=== PATIENT | male | born 1950 | race Caucasian/White ===

== ENCOUNTER 2017-10-11 17:01 | Emergency (ER) | payer MEDICARE ==
[2016-05-02 08:31] VITALS: Wt 65.8 kg
[~2017-10-11 17:01] MED LIST: ALBU8.5H IH; ALBU8.5H12 IH; BUPR1PAT9 TD; BUSP7.5T7 PO; CALC625T57 PO; CEFU250S6 PO; CLON-298 PO; CLON-303 *; CLON-388 PO; FLUV50TA18 PO; GAB800PT PO; GABA-549 PO; LEVO-85 PO; LORA-1455 PO; MAG-65 PO; MIRT-22 PO; MULT-1379 PO; OMEP-218 PO; PER PO; PRED-1 PO; PRED20TA6 PO; PREG300C14 PO; TADA5TAB7 PO; TIO18R IH; TRA50 PO; VENL75TA98 PO
[2017-10-11] MEDS ORDERED: ESCI10TA8 PO (17:20)
[2017-10-11] MEDS ORDERED: AMIT-108 PO (17:20)
[2017-10-11] MEDS ORDERED: CLON-388 PO (17:20)
[2017-10-11] MEDS ORDERED: DILT-102 PO (17:20)
[2017-10-11] MEDS ORDERED: NS(*) 0.9% 1000 ML BAG 1,000 ML IV ONE (17:24)
[2017-10-11] MEDS ORDERED: LORazepam 2 MG/ML VIAL IVP ONE (17:25)
--- NOTE | 2017-10-11 17:32 | ER Report ---
History and Physical Time Seen By MD: 17:15 Hx. of Stated Complaint: PATIENT REPORTS THAT HE WOKE UP CONFUSED. HE REPORTS THAT HE RAN OUT OF HIS [employer] YESTERDAY HPI/ROS CHIEF COMPLAINT: Lightheadedness and shakiness HISTORY OF PRESENT ILLNESS: This is a 67-year-old male who presents to the emergency department with his friend for lightheadedness and shakiness. Patient states that this morning he woke up and felt a little lightheaded and felt sort of "out of it and that time was off". Patient also states that he's had an increase in shortness of breath over the last day or two. Patient also states that he's had increase in anxiety this week, feeling a little overwhelmed with things at home he did move out of his house however that was about 7 months ago. Patient states that he became overwhelmed that he has not really unpacked and last 7 months. Patient does have a long-standing history of anxiety and is on chronic benzodiazepines. Patient states the last time he took his clonazepam was about 2 days ago. Patient also states he is feeling a little bit sweaty, chills. Denies chest pain. Denies headaches, denies recent falls. REVIEW OF SYSTEMS: Constitutional: As above. Eyes: No discharge. ENT: No sore throat. Cardiovascular: No chest pain, no palpitations. Respiratory: As above. Gastrointestinal: No abdominal pain, no vomiting. Genitourinary: No hematuria. Musculoskeletal: As above. Skin: No rashes. Neurological: No headache. Allergies: Coded Allergies: blueberry (Verified Allergy, Severe, HIVES, THROAT SELLING, 11/24/16) fentanyl (Verified Allergy, Unknown, DELUSIONS, 11/24/16) Home Meds Active Scripts Albuterol Sul Hfa 90 Mcg 8 Gm (VENTOLIN HFA 90 MCG 8 GM) 8.5 Gm Hfa.aer.ad, 2 PUFF IH Q4-6H Y for shortness of breath, #1 Prov:SAMMI DE JESUS DO 07/03/14 Reported Medications Diltiazem Hcl (CARTIA XT) 120 Mg Cap.er.24h, 120 MG PO QDAY 10/11/17 Escitalopram Oxalate (ESCITALOPRAM OXALATE) 10 Mg Tablet, 10 MG PO QDAY, TAB 10/11/17 Clonazepam (CLONAZEPAM) 0.5 Mg Tab.rapdis, 0.5 MG PO BID, #6 TAB 10/11/17 Amitriptyline Hcl (AMITRIPTYLINE HCL) 50 Mg Tablet, 50 MG PO QHS, #5 TAB 10/11/17 Gabapentin (GABAPENTIN) 300 Mg Capsule, 300 MG PO TID, CAPSULE 11/26/16 Venlafaxine Hcl (VENLAFAXINE HCL ER) 75 Mg Tab.er.24, 225 MG PO QAM TAKE EVERY MORNING 04/09/16 Tramadol Hcl (Ultram) 50 Mg Tab, 100 MG PO TID, 0 Refills TAKE UP TO THREE TIMES A DAY NEEDED FOR PAIN. 05/28/10 Past Medical/Surgical History She has a past medical and surgical history of shortness of breath with activity , COPD, smokes, uses inhaler, uses oxygen usually at night, hepatitis C, hiatal hernia, polyps removed from his throat, hypoglycemia, Raynaud's syndrome with multiple finger amputations, anxiety, depression, appendectomy. Reviewed Nurses Notes: Yes Hx Smoking: Yes Smoking Status: Current: Some Days Smoker Hx Substance Use Disorder: No (DENIES) Hx Alcohol Use: No Constitutional Vital Sign - Last 24 Hours 10/11/17 10/11/17 10/11/17 10/11/17 17:01 17:05 17:08 17:50 Temp 98.4 Pulse ??? 102 Resp 24 B/P (MAP) 154/109 (124) 154/109 138/132 (134) Pulse Ox 84 O2 Delivery Room Air 10/11/17 10/11/17 18:00 18:01 Pulse 93 B/P (MAP) 147/105 (119) Pulse Ox 95 Intake and Output 10/11/17 10/11/17 10/12/17 15:00 23:00 07:00 Intake Total 650 ml Balance 650 ml Physical Exam General Appearance: The patient is alert, has no immediate need for airway protection and no signs of toxicity, appears anxious and fidgety. Eyes: Pupils equal and round no pallor or injection. ENT, Mouth: Mucous membranes are dry, geographic tongue. Respiratory: There are no retractions, lungs are clear to auscultation. Cardiovascular: Regular rate and rhythm, no murmurs, clicks or rubs. Gastrointestinal: Abdomen is soft and non tender, no masses, bowel sounds normal. Neurological: Alert and oriented 4. Moving all extremities. Following all commands. No focal neuro deficits. Cranial nerves II through XII intact. Skin: Warm and dry, no rashes. Musculoskeletal: Neck is supple non tender. Extremities are nontender, nonswollen and have full range of motion. DIFFERENTIAL DIAGNOSIS: After history and physical exam differential diagnosis was considered for [facility], benzodiazepine withdrawal, anxiety, depression and pulmonary embolus. Medical Decision Making Data Points Result Diagram: 10/11/17 1733 10/11/17 1733 Laboratory Hematology Test 10/11/17 17:33 Red Blood Count 6.16 M/uL (4.00-5.60) Mean Corpuscular Volume 91.8 fL (80.0-96.0) Mean Corpuscular Hemoglobin 32.2 pg (26.0-33.0) Mean Corpuscular Hemoglobin Concent 35.1 g/dL (32.0-36.0) Red Cell Distribution Width 13.7 % (11.5-14.5) Mean Platelet Volume 6.8 fL (7.2-11.1) Neutrophils (%) (Auto) 66.9 % (39.4-72.5) Lymphocytes (%) (Auto) 21.3 % (17.6-49.6) Monocytes (%) (Auto) 8.5 % (4.1-12.4) Eosinophils (%) (Auto) 2.6 % (0.4-6.7) Basophils (%) (Auto) 0.7 % (0.3-1.4) Nucleated RBC Relative Count (auto) 0.1 /100WBC Neutrophils # (Auto) 5.4 K/uL (2.0-7.4) Lymphocytes # (Auto) 1.7 K/uL (1.3-3.6) Monocytes # (Auto) 0.7 K/uL (0.3-1.0) Eosinophils # (Auto) 0.2 K/uL (0.0-0.5) Basophils # (Auto) 0.1 K/uL (0.0-0.1) Nucleated RBC Absolute Count (auto) 0.01 K/uL Sodium Level 144 mmol/L (137-145) Potassium Level 4.2 mmol/L (3.5-5.0) Chloride Level 102 mmol/L (98-107) Carbon Dioxide Level 28 mmol/L (22-30) Blood Urea Nitrogen 15 mg/dl (9-21) Creatinine 0.90 mg/dl (0.66-1.25) Glomerular Filtration Rate Calc > 60.0 Random Glucose 97 mg/dl (75-110) Calcium Level 9.2 mg/dl (8.4-10.2) Total Bilirubin 1.1 mg/dl (0.2-1.3) Aspartate Amino Transf (AST/SGOT) 47 U/L (0-35) Alanine Aminotransferase (ALT/SGPT) 66 U/L (0-56) Alkaline Phosphatase 101 U/L (0-126) Troponin I < 0.012 ng/ml Total Protein 8.0 gm/dl (6.3-8.2) Albumin 4.2 g/dl (3.5-5.0) Chemistry Test 10/11/17 17:33 White Blood Count 8.1 k/uL (4.5-11.0) Red Blood Count 6.16 M/uL (4.00-5.60) Hemoglobin 19.8 g/dL (14.0-18.0) Hematocrit 56.5 % (42.0-52.0) Mean Corpuscular Volume 91.8 fL (80.0-96.0) Mean Corpuscular Hemoglobin 32.2 pg (26.0-33.0) Mean Corpuscular Hemoglobin Concent 35.1 g/dL (32.0-36.0) Red Cell Distribution Width 13.7 % (11.5-14.5) Platelet Count 266 K/uL (150-450) Mean Platelet Volume 6.8 fL (7.2-11.1) Neutrophils (%) (Auto) 66.9 % (39.4-72.5) Lymphocytes (%) (Auto) 21.3 % (17.6-49.6) Monocytes (%) (Auto) 8.5 % (4.1-12.4) Eosinophils (%) (Auto) 2.6 % (0.4-6.7) Basophils (%) (Auto) 0.7 % (0.3-1.4) Nucleated RBC Relative Count (auto) 0.1 /100WBC Neutrophils # (Auto) 5.4 K/uL (2.0-7.4) Lymphocytes # (Auto) 1.7 K/uL (1.3-3.6) Monocytes # (Auto) 0.7 K/uL (0.3-1.0) Eosinophils # (Auto) 0.2 K/uL (0.0-0.5) Basophils # (Auto) 0.1 K/uL (0.0-0.1) Nucleated RBC Absolute Count (auto) 0.01 K/uL Glomerular Filtration Rate Calc > 60.0 Calcium Level 9.2 mg/dl (8.4-10.2) Total Bilirubin 1.1 mg/dl (0.2-1.3) Aspartate Amino Transf (AST/SGOT) 47 U/L (0-35) Alanine Aminotransferase (ALT/SGPT) 66 U/L (0-56) Alkaline Phosphatase 101 U/L (0-126) Troponin I < 0.012 ng/ml Total Protein 8.0 gm/dl (6.3-8.2) Albumin 4.2 g/dl (3.5-5.0) EKG/Imaging EKG Interpretation 12 lead EKG: Time of EKG 1729. Rhythm: Normal sinus rhythm, ventricular rate 94 bpm. [place]: normal QRS: normal ST segments: ST depression or elevation identified. [place] [facility] [place] Adarsh Tovar : 1950 Visit/Account:[id number] Date of Sevice: 10/11/2017 2 VIEWS CHEST INDICATION: Respiratory distress. COMPARISON: 07/03/2016. FINDINGS: Cardiomediastinal silhouette and pulmonary vessels within normal limits. There is no focal infiltrate or lobar consolidation. There is no pneumothorax or pleural effusion. No nodule. Chronic interstitial changes which appear stable. Upper abdomen is unremarkable. No acute bony abnormality. IMPRESSION: 1. No acute cardiopulmonary process. Report Dictated By: Naveen Hanna at 10/11/2017 5:55 PM Report E-Signed By: Naveen Hanna at 10/11/2017 5:59 PM WSN:[id number] ED Course/Re-evaluation Clinical Indication for ER IV: Hydration, IV Access ED Course The patient was admitted to room. History and physical were obtained. Differential diagnoses considered. An IV was started. A CBC, CMP were obtained. Hemoglobin and hematocrit 19.8 and 56.5. Otherwise unremarkable. Negative troponin. Patient was given 1 L of normal saline. Patient was given 1 mg IV Ativan. I did reevaluate the patient after the Ativan he states he is feeling much better, and the majority of shakiness subsided. Patient stated that he no longer has shortness of breath. The patient and I did discuss benzodiazepines, potential complications and he cannot abruptly stop them. If this something that he is wanting to stop he needs to discuss this with Dr. Padilla and taper off the medications. Patient did express understanding. I did tell him that his symptoms today are likely from benzodiazepine withdrawal. Patient was in agreement and states this has happened to him before. Patient had no other questions or concerns at this time and was discharged home. Patient was given one 0.5 mg clonazepam for tonight. Patient states he has a prescription that he failed to filler picker tomorrow from Dr. 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 Get plenty of rest. Be sure to get your clonazepam filled tomorrow and take as directed. Follow up with Dr. Padilla as directed. Do not abruptly stop you Clonazepam. Return to the ED for any other concerns or worsening symptoms. Problem Qualifiers FAWAD LOMBARDO [employer] Oct 11, 2017 17:32
[2017-10-11 17:39] LABS: PLATELET COUNT, AUTOMATED 266 K/uL (150-450)
--- NOTE | 2017-10-11 17:50 | EKG ---
[facility]AC[facility] PATIENT NAME: MARY JACQUES : [id number] MR: [id number] V: [id number] EXAM DATE: ORDERING PHYSICIAN: FAWAD LOMBARDO TECHNOLOGIST: CAMRYN Galvan Reason : Blood Pressure : / mmHG Vent. Rate : 094 BPM Atrial Rate : 094 BPM P-R Int : 144 ms QRS Dur : 116 ms QT Int : 400 ms P-R-T Axes : 021 -80 044 degrees QTc Int : 500 ms Normal sinus rhythm Nonspecific intraventricular block Prolonged QT Abnormal ECG When compared with ECG of 24-NOV-2016 18:44, No significant change was found Confirmed by ONEL TYSON ([id number]) on 10/11/2017 6:44:37 PM Referred By: Confirmed By:ONEL TYSON
[2017-10-11 18:00] VITALS: BP 147/105
--- NOTE | 2017-10-11 18:03 | RADIOLOGY IMAGING REPORT ---
FACILITY: [facility] - [place] PATIENT NAME: Adarsh Tovar : 1950 MR: [id number] V: [id number] EXAM DATE: ORDERING PHYSICIAN: FAWAD LOMBARDO TECHNOLOGIST: Location: [facility] Patient: Adarsh Tovar : 1950 Visit/Account:[id number] Date of Sevice: 10/11/2017 2 VIEWS CHEST INDICATION: Respiratory distress. COMPARISON: 07/03/2016. FINDINGS: Cardiomediastinal silhouette and pulmonary vessels within normal limits. There is no focal infiltrate or lobar consolidation. There is no pneumothorax or pleural effusion. No nodule. Chronic interstitial changes which appear stable. Upper abdomen is unremarkable. No acute bony abnormality. IMPRESSION: 1. No acute cardiopulmonary process. Report Dictated By: Naveen Hanna at 10/11/2017 5:55 PM Report E-Signed By: Naveen Hanna at 10/11/2017 5:59 PM WSN:[id number]
[2017-10-11] MEDS ORDERED: clonazePAM 0.5 MG ODT TABDP PO SCH (18:25)
== END 2017-10-11 18:39 | disposition home or self-care (01) ==
LOC: ER 17:15
DX: F19.939 Other psychoactive substance use, unspecified with withdrawal, unspecified (principal); R25.1 Tremor, unspecified
CPT/HCPCS: 71046; 84484; 85025; 93005; 96361; 96374; 99284; J2060; J7030; 82040; 82247; 82310; 82374; 82435; 82565; 82947; 84075; 84132; 84155; 84295; 84450; 84460; 84520

== ENCOUNTER 2017-12-18 23:57 | Emergency (ER) | payer MEDICARE ==
[2016-05-02 08:31] VITALS: Wt 63.5 kg
[~2017-12-18 23:57] MED LIST changes: +AMIT-108 PO; +DILT-102 PO; +ESCI10TA8 PO
--- NOTE | 2017-12-19 00:14 | ER Report ---
History and Physical Time Seen By MD: 00:14 HPI/ROS CHIEF COMPLAINT: S HISTORY OF PRESENT ILLNESS: Patient is somewhat of a poor historian. Additional history obtained from the electronic medical record. Patient presents to the emergency department for evaluation of benzodiazepine dependence. Patient states he has long history of clonazepam use spanning approximately 15 years. He states that this was prescribed initially for anxiety after an injury to his left hand where he lost 4 of his distal digits. Patient states that he is currently out of his clonazepam and wants to get off this medication. The problem he is currently having is now feeling anxious and feeling withdrawal symptoms. He denies any other illicit-type drug use he denies alcohol use. States he is not feeling suicidal or homicidal. Patient apparently is estranged from his he lives by himself in [place]. He has a history of chronic pain for which he is prescribed tramadol. Patient does admit to some chronic standing depression and is on antidepressants for which he states he is on amitriptyline. Patient further admits to some falls over the past couple days and some bruising to the anterior knees secondary to these falls. REVIEW OF SYSTEMS: Constitutional: No fever, no chills. Eyes: No discharge. ENT: No sore throat. Cardiovascular: No chest pain, no palpitations. Respiratory: No cough, no shortness of breath. Gastrointestinal: No abdominal pain, no vomiting. Genitourinary: No hematuria. Musculoskeletal: No back pain. Skin: No rashes. Neurological: No headache. Psych: Denies suicidal or homicidal ideation. Positive for depression positive for benzo withdrawal Allergies: Coded Allergies: blueberry (Verified Allergy, Severe, HIVES, THROAT SELLING, 11/24/16) fentanyl (Verified Allergy, Unknown, DELUSIONS, 11/24/16) Home Meds Active Scripts Albuterol Sul Hfa 90 Mcg 8 Gm (VENTOLIN HFA 90 MCG 8 GM) 8.5 Gm Hfa.aer.ad, 2 PUFF IH Q4-6H Y for shortness of breath, #1 Prov:SAMMI DE JESUS DO 07/03/14 Reported Medications Diltiazem Hcl (CARTIA XT) 120 Mg Cap.er.24h, 120 MG PO QDAY 10/11/17 Escitalopram Oxalate (ESCITALOPRAM OXALATE) 10 Mg Tablet, 10 MG PO QDAY, TAB 4/1/18 Clonazepam (CLONAZEPAM) 0.5 Mg Tab.rapdis, 0.5 MG PO BID, #6 TAB 10/11/17 Amitriptyline Hcl (AMITRIPTYLINE HCL) 50 Mg Tablet, 50 MG PO QHS, #5 TAB 10/11/17 Gabapentin (GABAPENTIN) 300 Mg Capsule, 300 MG PO TID, CAPSULE 11/26/16 Tramadol Hcl (Ultram) 50 Mg Tab, 100 MG PO TID, 0 Refills TAKE UP TO THREE TIMES A DAY NEEDED FOR PAIN. 05/28/10 Discontinued Reported Medications Venlafaxine Hcl (VENLAFAXINE HCL ER) 75 Mg Tab.er.24, 225 MG PO QAM TAKE EVERY MORNING 04/09/16 Past Medical/Surgical History Past medical history for COPD, history of oxygen use at night, history of hepatitis C history of hiatal hernia, history of hypoglycemia, history of Raynaud's, anxiety, depression, appendectomy. Hx Smoking: Yes Smoking Status: Current: Some Days Smoker Hx Substance Use Disorder: No (DENIES) Hx Alcohol Use: No Constitutional Vital Sign - Last 24 Hours 12/19/17 12/19/17 12/19/17 12/19/17 00:09 00:09 00:13 00:27 Temp 98.2 B/P (MAP) 128/79 128/79 (95) Pulse Ox 90 O2 Delivery Room Air O2 Flow Rate 1.0 12/19/17 12/19/17 12/19/17 12/19/17 00:30 00:42 00:57 01:12 Pulse 67 63 63 Resp 7 20 B/P (MAP) 119/83 (95) Pulse Ox 92 92 93 12/19/17 12/19/17 12/19/17 12/19/17 01:27 01:30 01:35 01:40 Pulse 60 63 62 Resp 17 20 23 B/P (MAP) 124/79 (94) Pulse Ox 93 92 93 12/19/17 12/19/17 12/19/17 12/19/17 01:55 02:00 02:10 02:15 Pulse 61 61 60 Resp 8 20 19 B/P (MAP) 96/61 (73) Pulse Ox 90 89 92 12/19/17 12/19/17 02:20 02:27 Pulse 57 B/P (MAP) 110/74 (86) Physical Exam General/Constitutional: Patient is awake, alert, nontoxic and in no acute respiratory distress. Head: Normocephalic and atraumatic. Eyes: Conjunctival clear, Pupils are equal and reactive to light. Extraocular muscles are intact and symmetrical. Sclera are clear and anicteric. Ears:External canals are clear. Tympanic membranes are clear with normal landmarks and light reflex. Nares: No rhinorrhea or bleeding. Turbinates are pink and moist. Oropharyngeal: Mucous membranes are moist. There is no pharyngeal erythema or exudate. There are no palatal petechiae. Uvula is midline and symmetrical. Neck: Supple, no adenopathy. Cardiovascular: Heart is regular rate and rhythm without audible murmurs, rubs or gallops. Pulmonary: Lungs are clear to auscultation bilaterally. There are no wheezes, rales, or rhonchi. Chest rise is symmetrical Abdomen: Soft, nontender, no guarding or peritoneal signs. Extremities: No gross deformities, No peripheral cyanosis. Able to move all 4 extremities. Neuro: Alert and oriented X3, Cranial nerves 2 thru 12 are intact and symmetrical. Skin: No rashes, skin is warm dry and well perfused. Psychiatric: No suicidal or homicidal ideation. Positive for increased psychomotor agitation. Thought process is logical and goal-directed mood is somewhat depressed which is concurrent with affect Medical Decision Making Data Points Result Diagram: 12/19/17 0052 12/19/17 0052 Laboratory Hematology Test 12/19/17 00:52 12/19/17 01:43 Red Blood Count 5.21 M/uL (4.00-5.60) Mean Corpuscular Volume 92.9 fL (80.0-96.0) Mean Corpuscular Hemoglobin 32.3 pg (26.0-33.0) Mean Corpuscular Hemoglobin Concent 34.8 g/dL (32.0-36.0) Red Cell Distribution Width 13.5 % (11.5-14.5) Mean Platelet Volume 7.5 fL (7.2-11.1) Neutrophils (%) (Auto) 66.0 % (39.4-72.5) Lymphocytes (%) (Auto) 20.4 % (17.6-49.6) Monocytes (%) (Auto) 7.4 % (4.1-12.4) Eosinophils (%) (Auto) 4.6 % (0.4-6.7) Basophils (%) (Auto) 1.6 % (0.3-1.4) Nucleated RBC Relative Count (auto) 0.0 /100WBC Neutrophils # (Auto) 6.3 K/uL (2.0-7.4) Lymphocytes # (Auto) 1.9 K/uL (1.3-3.6) Monocytes # (Auto) 0.7 K/uL (0.3-1.0) Eosinophils # (Auto) 0.4 K/uL (0.0-0.5) Basophils # (Auto) 0.2 K/uL (0.0-0.1) Nucleated RBC Absolute Count (auto) 0.00 K/uL Sodium Level 142 mmol/L (137-145) Potassium Level 3.9 mmol/L (3.5-5.0) Chloride Level 102 mmol/L (98-107) Carbon Dioxide Level 26 mmol/L (22-30) Blood Urea Nitrogen 30 mg/dl (9-21) Creatinine 1.20 mg/dl (0.66-1.25) Glomerular Filtration Rate Calc > 60.0 Random Glucose 106 mg/dl (75-110) Calcium Level 8.8 mg/dl (8.4-10.2) Magnesium Level 2.0 mg/dl (1.7-2.2) Total Bilirubin 1.4 mg/dl (0.2-1.3) Aspartate Amino Transf (AST/SGOT) 60 U/L (0-35) Alanine Aminotransferase (ALT/SGPT) 82 U/L (0-56) Alkaline Phosphatase 103 U/L (0-126) Troponin I < 0.012 ng/ml Total Protein 6.8 gm/dl (6.3-8.2) Albumin 3.7 g/dl (3.5-5.0) Salicylates Level < 10 mg/L Salicylate Last Dose Date unk Acetaminophen Level < 10 ug/ml Serum Alcohol < 10 mg/dl Urine Color Jane Urine Clarity Clear Urine pH 5.0 pH (4.8-9.5) Urine Specific [place] 1.025 Urine Protein Negative mg/dL (NEGATIVE) Urine Glucose (UA) Negative mg/dL (NEGATIVE) Urine Ketones Trace mg/dL (NEGATIVE) Urine Blood Negative (NEGATIVE) Urine Nitrite Negative (NEGATIVE) Urine Bilirubin Small (NEGATIVE) Urine Urobilinogen 4.0 mg/dL (0.2-1.9) Urine Leukocyte Esterase Negative (NEGATIVE) Urine RBC 1 /HPF (0-2/HPF) Urine WBC 1 /HPF (0-5/HPF) Urine Squamous Epithelial Cells Few /LPF (</=FEW) Urine Bacteria Few /HPF (NONE-FEW) Urine Hyaline Casts Few /LPF (NONE-FEW) Urine Mucus Few /HPF (NONE-FEW) Urine Opiates Screen Negative Urine Barbiturates Screen Negative Ur Tricyclic Antidepressants Screen Positive Urine Phencyclidine Screen Negative Urine Amphetamines Screen Positive Urine Benzodiazepines Screen Negative Urine Cocaine Screen Negative Urine Cannabinoids Screen Negative Chemistry Test 12/19/17 00:52 12/19/17 01:43 White Blood Count 9.5 k/uL (4.5-11.0) Red Blood Count 5.21 M/uL (4.00-5.60) Hemoglobin 16.8 g/dL (14.0-18.0) Hematocrit 48.4 % (42.0-52.0) Mean Corpuscular Volume 92.9 fL (80.0-96.0) Mean Corpuscular Hemoglobin 32.3 pg (26.0-33.0) Mean Corpuscular Hemoglobin Concent 34.8 g/dL (32.0-36.0) Red Cell Distribution Width 13.5 % (11.5-14.5) Platelet Count 239 K/uL (150-450) Mean Platelet Volume 7.5 fL (7.2-11.1) Neutrophils (%) (Auto) 66.0 % (39.4-72.5) Lymphocytes (%) (Auto) 20.4 % (17.6-49.6) Monocytes (%) (Auto) 7.4 % (4.1-12.4) Eosinophils (%) (Auto) 4.6 % (0.4-6.7) Basophils (%) (Auto) 1.6 % (0.3-1.4) Nucleated RBC Relative Count (auto) 0.0 /100WBC Neutrophils # (Auto) 6.3 K/uL (2.0-7.4) Lymphocytes # (Auto) 1.9 K/uL (1.3-3.6) Monocytes # (Auto) 0.7 K/uL (0.3-1.0) Eosinophils # (Auto) 0.4 K/uL (0.0-0.5) Basophils # (Auto) 0.2 K/uL (0.0-0.1) Nucleated RBC Absolute Count (auto) 0.00 K/uL Glomerular Filtration Rate Calc > 60.0 Calcium Level 8.8 mg/dl (8.4-10.2) Magnesium Level 2.0 mg/dl (1.7-2.2) Total Bilirubin 1.4 mg/dl (0.2-1.3) Aspartate Amino Transf (AST/SGOT) 60 U/L (0-35) Alanine Aminotransferase (ALT/SGPT) 82 U/L (0-56) Alkaline Phosphatase 103 U/L (0-126) Troponin I < 0.012 ng/ml Total Protein 6.8 gm/dl (6.3-8.2) Albumin 3.7 g/dl (3.5-5.0) Salicylates Level < 10 mg/L Salicylate Last Dose Date unk Acetaminophen Level < 10 ug/ml Serum Alcohol < 10 mg/dl Urine Color Jane Urine Clarity Clear Urine pH 5.0 pH (4.8-9.5) Urine Specific [place] 1.025 Urine Protein Negative mg/dL (NEGATIVE) Urine Glucose (UA) Negative mg/dL (NEGATIVE) Urine Ketones Trace mg/dL (NEGATIVE) Urine Blood Negative (NEGATIVE) Urine Nitrite Negative (NEGATIVE) Urine Bilirubin Small (NEGATIVE) Urine Urobilinogen 4.0 mg/dL (0.2-1.9) Urine Leukocyte Esterase Negative (NEGATIVE) Urine RBC 1 /HPF (0-2/HPF) Urine WBC 1 /HPF (0-5/HPF) Urine Squamous Epithelial Cells Few /LPF (</=FEW) Urine Bacteria Few /HPF (NONE-FEW) Urine Hyaline Casts Few /LPF (NONE-FEW) Urine Mucus Few /HPF (NONE-FEW) Urine Opiates Screen Negative Urine Barbiturates Screen Negative Ur Tricyclic Antidepressants Screen Positive Urine Phencyclidine Screen Negative Urine Amphetamines Screen Positive Urine Benzodiazepines Screen Negative Urine Cocaine Screen Negative Urine Cannabinoids Screen Negative Toxicology Test 12/19/17 00:52 12/19/17 01:43 Salicylates Level < 10 mg/L Salicylate Last Dose Date unk Acetaminophen Level < 10 ug/ml Serum Alcohol < 10 mg/dl Urine Opiates Screen Negative Urine Barbiturates Screen Negative Ur Tricyclic Antidepressants Screen Positive Urine Phencyclidine Screen Negative Urine Amphetamines Screen Positive Urine Benzodiazepines Screen Negative Urine Cocaine Screen Negative Urine Cannabinoids Screen Negative Urinalysis Test 12/19/17 01:43 Urine Color Jane Urine Clarity Clear Urine pH 5.0 pH (4.8-9.5) Urine Specific [place] 1.025 Urine Protein Negative mg/dL (NEGATIVE) Urine Glucose (UA) Negative mg/dL (NEGATIVE) Urine Ketones Trace mg/dL (NEGATIVE) Urine Blood Negative (NEGATIVE) Urine Nitrite Negative (NEGATIVE) Urine Bilirubin Small (NEGATIVE) Urine Urobilinogen 4.0 mg/dL (0.2-1.9) Urine Leukocyte Esterase Negative (NEGATIVE) Urine RBC 1 /HPF (0-2/HPF) Urine WBC 1 /HPF (0-5/HPF) Urine Squamous Epithelial Cells Few /LPF (</=FEW) Urine Bacteria Few /HPF (NONE-FEW) Urine Hyaline Casts Few /LPF (NONE-FEW) Urine Mucus Few /HPF (NONE-FEW) EKG/Imaging EKG Interpretation FACILITY: [facility] PATIENT NAME: Olaf Dos Santos : 03/23/1952 MR: [id number] V: [id number] EXAM DATE: ORDERING PHYSICIAN: KIRSTY DAVIDSON TECHNOLOGIST: Location: [facility] Patient: Olaf Dos Santos : 03/23/1952 Visit/Account:[id number] Date of Sevice: 12/18/2017 HUMERUS RIGHT HISTORY: Trauma. Hit head. Has fallen many times. Intoxicated. COMPARISON: None. Prior chest x-ray 01/14/2017 and 05/06/2015. TECHNIQUE: AP and lateral views of the right humerus. FINDINGS: There is no fracture or dislocation. There is mild degenerative change of the glenohumeral joint. There is lucency of the glenoid and scapula, unchanged compared to prior chest x-ray, that may be on a degenerative basis. No acromioclavicular joint separation. There is soft tissue calcification superior to the right humeral head, consistent with calcific tendinopathy. Visible right thorax is normal. IMPRESSION: 1. Degenerative changes, but no acute osseous abnormality of the right humerus. Report Dictated By: Giovanna Arreguin at 12/18/2017 10:28 PM Report E-Signed By: Giovanna Arreguin at 12/18/2017 10:30 PM WSN:[id number] Imaging FACILITY: [facility] PATIENT NAME: Adarsh Tovar : 1950 MR: [id number] V: [id number] EXAM DATE: ORDERING PHYSICIAN: KIRSTY DAVIDSON TECHNOLOGIST: Location: [facility] Patient: Adarsh Tovar : 1950 Visit/Account:[id number] Date of Sevice: 12/19/2017 EXAMINATION: CT Head Without Contrast 12/19/2017 12:33 AM HISTORY: falls TECHNIQUE: Contiguous axial images were obtained from the skull base to the vertex without intravenous contrast. One of the following dose optimization techniques was utilized in the performance of this exam: Automated exposure control; adjustment of the mA and/ or kV according to the patient's size; or use of an iterative reconstruction technique. Specific details can be referenced in the facility's radiology CT exam operational policy. COMPARISON STUDIES: 11/24/2016 with MR 12/25/2016. FINDINGS: Ventricles / sulci / fissures: Normal for age Masses / hemorrhage / midline shift: negative White matter: Mild white matter hypodensities which are age appropriate. No acute finding. Johnston-white differentiation: negative Extra-axial spaces: negative Dural venous sinuses / arterial structures: negative Skull base / calvarium: negative Visualized mastoid air cells / paranasal sinuses: Leftward nasal septal deviation. IMPRESSION: Unremarkable head CT for age. No evidence of mass, acute ischemia, or hemorrhage. Report Dictated By: Martín Chu MD at 12/19/2017 1:23 AM Report E-Signed By: Martín Chu MD at 12/19/2017 1:25 AM WSN:[id number] ED Course/Re-evaluation ED Course 12/19/2017 12:52:39 am patient appears to be here requesting help with detox from benzodiazepines. Patient's currently in mild withdrawal based on physical exam findings. Plan will be medical screening evaluation. If medically cleared will contact [facility] and discussed the case with them. Decision to Disposition Date: Dec 19, 2017 Decision to Disposition Time: 02:10 Depart Departure Latest Vital Signs Vital Signs Date Time Temp Pulse Resp B/P (MAP) Pulse Ox O2 Delivery O2 Flow Rate FiO2 12/19/17 02:27 57 12/19/17 02:20 110/74 (86) 12/19/17 02:15 19 92 12/19/17 00:09 1.0 12/19/17 00:09 98.2 Room Air Impression: Primary Impression: Benzodiazepine withdrawal without complication Condition: Condition Unchanged Disposition: XFER TO [facility] (To Dr Donnelly) Referrals: NETTE HAND MD (PCP) KIRSTY DAVIDSON MD Dec 19, 2017 00:14
[2017-12-19] MEDS ORDERED: DIAZEPAM 10 MG TAB PO ONE (00:35)
[2017-12-19 01:03] LABS: PLATELET COUNT, AUTOMATED 239 K/uL (150-450)
--- NOTE | 2017-12-19 01:31 | RADIOLOGY IMAGING REPORT ---
FACILITY: [facility] PATIENT NAME: Adarsh Tovar : 1950 MR: [id number] V: [id number] EXAM DATE: ORDERING PHYSICIAN: KIRSTY DAVIDSON TECHNOLOGIST: Location: [facility] Patient: Adarsh Tovar : 1950 Visit/Account:[id number] Date of Sevice: 12/19/2017 EXAMINATION: CT Head Without Contrast 12/19/2017 12:33 AM HISTORY: falls TECHNIQUE: Contiguous axial images were obtained from the skull base to the vertex without intraven ous contrast. One of the following dose optimization techniques was utilized in the performance of this exam: Autom ated exposure control; adjustment of the mA and/or kV according to the patient's size; or use of an i terative reconstruction technique. Specific details can be referenced in the facility's radiology C T exam operational policy. COMPARISON STUDIES: 11/24/2016 with MR 12/25/2016. FINDINGS: Ventricles / sulci / fissures: Normal for age Masses / hemorrhage / midline shift: negative White matter: Mild white matter hypodensities which are age appropriate. No acute finding. Johnston-white differentiation: negative Extra-axial spaces: negative Dural venous sinuses / arterial structures: negative Skull base / calvarium: negative Visualized mastoid air cells / paranasal sinuses: Leftward nasal septal deviation. IMPRESSION: Unremarkable head CT for age. No evidence of mass, acute ischemia, or hemorrhage. Report Dictated By: Martín Chu MD at 12/19/2017 1:23 AM Report E-Signed By: Martín Chu MD at 12/19/2017 1:25 AM WSN:[id number]
[2017-12-19 02:20] VITALS: BP 110/74
--- NOTE | 2017-12-19 02:50 | EKG ---
FACILITY: [facility] PATIENT NAME: MARY JACQUES : [id number] MR: [id number] V: [id number] EXAM DATE: ORDERING PHYSICIAN: KIRSTY DAVIDSON TECHNOLOGIST: DM Test Reason : HX AMITRYPTILINE USE Blood Pressure : / mmHG Vent. Rate : 065 BPM Atrial Rate : 065 BPM P-R Int : 170 ms QRS Dur : 136 ms QT Int : 458 ms P-R-T Axes : 063 -78 019 degrees QTc Int : 476 ms Normal sinus rhythm Nonspecific intraventricular block Abnormal ECG When compared with ECG of 11-OCT-2017 17:29, QRS duration has increased Confirmed by NETTE MYERS ([id number]) on 12/19/2017 6:27:05 AM Referred By: Confirmed By:NETTE MYERS
== END 2017-12-19 02:30 ==
LOC: ER 12-19 00:17
DX: F19.239 Other psychoactive substance dependence with withdrawal, unspecified (principal); I45.4 Nonspecific intraventricular block; F41.9 Anxiety disorder, unspecified
CPT/HCPCS: 36415; 70450; 80305; 81001; 83735; 84443; 84484; 85025; 93005; 99284; A9270; G0480; 80320; 80329; 82040; 82247; 82310; 82374; 82435; 82565; 82947; 84075; 84132; 84155; 84295; 84450; 84460; 84520

== ENCOUNTER 2017-12-19 02:19 | Inpatient (IN) | payer MEDICARE ==
[2016-05-02 08:31] VITALS: BMI 22.7
[2017-12-19] MEDS ORDERED: DIAZEPAM 10 MG TAB PO PRN (02:55)
[2017-12-19] MEDS ORDERED: MAG HYD/AL HYD/SIMETH 30ML UDC PO PRN (02:55)
[2017-12-19 03:00] VITALS: BP 118/74
[2017-12-19] MEDS ORDERED: traMADol 50 MG TAB PO ONE (03:00)
[2017-12-19] MEDS: MULTIVITAMINS TAB PO SCH (07:48)
[2017-12-19 07:49] VITALS: BP 123/76
[2017-12-19 12:12] VITALS: BP 112/73
[2017-12-19] MEDS: DILTIAZEM CD 120 MG CAPCR PO SCH (12:16)
[2017-12-19] MEDS: ESCITALOPRAM OXALATE 10 MG TAB PO SCH (12:17)
[2017-12-19] MEDS: GABAPENTIN 300 MG CAP PO SCH ×2 (13:39→21:09)
[2017-12-19] MEDS: LIDOCAINE 2% VISC SLN 15ML UDC PO PRN (14:27)
--- NOTE | 2017-12-19 14:58 | HISTORY AND PHYSICAL ---
DATE OF ADMISSION: December 19, 2017 PRESENTING PROBLEM/CHIEF COMPLAINT "I was very unsteady and falling a lot. I was on medication for a long time, 15 years, and I wasn't supposed to be. It got to the point where I was unsteady when I used it and when I didn't." HISTORY OF PRESENT ILLNESS This patient is a 67-year-old male that presented to the emergency department for evaluation of benzodiazepine dependence. He reported a 15-year history of using clonazepam, which was initially prescribed following an injury to his left hand where he lost four digits secondary to frostbite and Raynaud D3. Patient is currently out of this medication, clonazepam, and wants to be off of it. He reports increased anxiety and feeling withdrawal symptoms at the time of emergency room visit. He denied any use of any illicit drugs or alcohol use. He denied suicidal or homicidal ideation. He also has a chronic pain syndrome for which he s prescribed tramadol, and reports some chronic long- standing history of depression for which he takes amitriptyline. He most recently has had some falls over the last couple of days, with bruising to his anterior knees secondary to these falls. He was agreeable to a voluntary admission for further evaluation and treatment, and was transferred to the Behavioral Health Unit. MENTAL HEALTH HISTORY Patient has had one previous inpatient psychiatric hospitalization at [facility] in April of 2016, at which time he presented with an altered mental status and psychotic symptoms. He also reports a previous inpatient residential stay at [facility] in [place], [place] in 1983 for substance related issues to keep his employment. He denies history of suicide attempts. He recently has been engaged with medication management with Kalina Kenny, psychiatric nurse practitioner, and has started therapy with Eusebia Corley. He in the past was seen by Mercedes Lorenzana for medication management. Previous medications including Effexor, Adderall, BuSpar , Remeron, Lyrica. FAMILY PSYCHIATRIC HISTORY He reports he has a sister with an eating disorder and depression. 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 History of Raynaud syndrome and COPD. SOCIAL HISTORY Patient was born in [facility]. His father was in the [employer]. He came to the [place] at 3 years of age. His parents were at the time of his . They are both . He has one brother and one sister. He has been and times two. He has one daughter living in [place], [place]. He reports that he lives by himself. He is currently not working. He retired in March 2005 or 2005. He graduated high school from [employer] in [place]. He reports previously living in [facility] from age 12 to 17 years of age. 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 LEGAL HISTORY Denies history of being on probation, parole, denies history of felonies or DUIs. OFFENDER/VICTIM ISSUES Denies history of physical, emotional, sexual abuse. SUBSTANCE ABUSE HISTORY Patient is guarded with this information. Reports he was a "child of the 60s." He reports no "hard use of drugs since 1982." He is a previous smoker, smoking from age to 18 up until five years ago. He denies regular use of cannabis. He reports drinking heavily in college. He reports that he used drugs for a long time, although is not willing to disclose what type. Patient does report a previous history of methamphetamine, which he used sporadically, but again is very nonspecific about his drug use. PHYSICAL EXAMINATION GENERAL: Please see emergency room notes for physical exam. VITAL SIGNS: At the time of admission, including temperature of 98.5, pulse 78 , respiratory rate 18, blood pressure 118/74, pulse oximetry 93% on room air. LABORATORY DATA CBC within normal limits. Chemistry panel within normal limits with the exception of AST/ALT slightly elevated at 60 and 82, total bilirubin is elevated at 1.4, BUN elevated 30, thyroid stimulating hormone is pending. Urine screen with high amount of urobilinogen 4.0. Toxicology including salicylate, acetaminophen, serum alcohol levels less than 10. Urine screen negative for opiates, barbiturates, phencyclidine, benzodiazepine, cocaine and cannabinoids. Positive for tricyclics of which he is prescribed, positive for amphetamines of which he denies being prescribed or using. MENTAL STATUS EXAMINATION GENERAL APPEARANCE, BEHAVIOR AND ATTITUDE: Patient is slightly anxious, although very cooperative and polite during his initial interview. No periods of tearfulness. No bizarre mannerisms or tics. No psychomotor agitation or retardation. MOOD: Mostly euthymic. AFFECT: Minimally constricted, mood congruent. THOUGHT PROCESSES: Logical, goal directed. No loose associations or flight of ideas. THOUGHT CONTENT: Free of auditory or visual hallucinations, ideas of reference , thought broadcastings, delusions, obsessions, compulsions. Patient denying suicidal or homicidal ideation. SENSORIUM: Clear. COGNITION: Alert and oriented to person, place, time and situation. MEMORY: Immediate, recent and remote estimated intact. INTELLIGENCE: Average based on interview. INSIGHT AND JUDGMENT: Considered intact, as patient presented on a voluntary basis for benzodiazepine withdrawal and treatment. ASSESSMENT This is a 67-year-old male that presented on a voluntary basis to the emergency department requesting assistance with benzodiazepine dependence. He reported a 15 year use of clonazepam, wanting to get off of this medication, but had recently run out of the prescription. Patient also with history of Raynaud syndrome and is on pain medication, tramadol, as well as currently seeing an outpatient psychiatric provider, being prescribed Lexapro and amitriptyline for his mental health symptoms. He reports the amitriptyline is effective for his sleep. Unsure of the effectiveness of Lexapro. Patient has also reported some recent falling and he attributes this to the benzodiazepine use. He denies use of illicit substances, although is positive for amphetamines. He is currently not being prescribed these and denies off-street use, although previous history of significant drug use, reporting he is a child of the 60s, very vague about his substance abuse history. Patient is rating his depression a 5-6, anxiety a 7-8. He denies anger. Reports his sleep is mostly sufficient, sleeps six to eight hours. Energy is fair. Appetite comes and goes. Does report some weight loss over the years. Patient denies symptoms of little or psychosis. He denies suicidal or homicidal ideation. He is agreeable to ongoing treatment and evaluation, and remains as a voluntary patient on the Behavioral Health Unit. 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 Stimulant use disorder, current remission. Unspecified anxiety disorder. History of Raynaud syndrome Problems related to ineffective coping mechanisms, intermediate use of benzodiazepines. PLAN 1. Will admit to the unit. 2. Necessary precautions will be implemented. 3. Individual and group therapy will be initiated. 4. Medications to be administered and titrated accordingly. 5. Labs, further imaging as appropriate. 6. Estimated length of stay three to five days. 7. Ongoing management of discharge planning in order to appropriately bridge over to outpatient services at the time of discharge. CHARLA
[2017-12-19 15:19] VITALS: BP 111/75
[2017-12-19 21:00] VITALS: BP 107/68
[2017-12-19] MEDS: AMITRIPTYLINE HCL 25 MG TAB PO SCH (21:09)
[2017-12-20 06:05] VITALS: BP 130/66
[2017-12-20] MEDS: ESCITALOPRAM OXALATE 10 MG TAB PO SCH (07:25)
[2017-12-20] MEDS: LIDOCAINE 2% VISC SLN 15ML UDC PO PRN (07:25)
[2017-12-20] MEDS: DILTIAZEM CD 120 MG CAPCR PO SCH (07:25)
[2017-12-20] MEDS: GABAPENTIN 300 MG CAP PO SCH ×3 (07:25→20:44)
[2017-12-20] MEDS: MULTIVITAMINS TAB PO SCH (07:25)
[2017-12-20 10:30] VITALS: BP 110/70
--- NOTE | 2017-12-20 11:42 | BHS Progress Note ---
BHS - Subjective Progress Notes Subjective "I'm doing ok. I'm a little anxious about not taking the Clonazepam. I think I depended on it. I've always been an anxious little fucker. When the anxiety comes back I tend to isolate." Depression'/anxiety 5/10 Reports fear in past regarding running low on prescription of benzodiazepines Sleeping well, appetite sufficient Suicidal Ideation: None Homicidal Ideation: None S - Objective Physical Exam Vital Signs Laboratory Tests 12/19/17 06:33 Laboratory Tests 12/19/17 06:33: Sodium Level 142, Potassium Level 3.5, Chloride Level 101, Carbon Dioxide Level 29, Blood Urea Nitrogen 24, Creatinine 1.10, Glomerular Filtration Rate Calc > 60.0, Random Glucose 81, Calcium Level 8.5, Total Bilirubin 1.3, Aspartate Amino Transf (AST/SGOT) 61, Alanine Aminotransferase (ALT/SGPT) 83, Alkaline Phosphatase 94, Total Protein 6.2, Albumin 3.3 ED Medications Multivitamins (Thera-M Enhanced Tab (Or Equiv)) 1 each QDAY Last administered on 12/20/17at 07:25; Admin Dose 1 EACH; Start 12/19/17 at 09:00; Stop 01/18/18 at 08:59 Diazepam (Valium(*) 10 Mg Tab (Or Equiv)) 10 mg PRN PRN Last administered on 12/19/17at 21:08; Admin Dose 10 MG; Start 12/19/17 at 02:55; Stop 01/02/18 at 02:54 Gabapentin (Neurontin(*) 300 Mg Cap (Or Equiv)) 600 mg TID Last administered on 12/20/17at 07:25; Admin Dose 600 MG; Start 12/19/17 at 14:00; Stop 01/18/18 at 13: 59 Diltiazem HCl (Cardizem Cd 120 Mg Capcr (Or Equiv)) 120 mg QDAY Last administered on 12/20/17at 07:25; Admin Dose 120 MG; Start 12/19/17 at 11:50; Stop 01/18/18 at 11:49 Lidocaine HCl (Lidocaine 2% Visc Sln (*) 15ml Udc) 15 ml PRN PRN Last administered on 12/20/17at 07:25; Admin Dose 15 ML; Start 12/19/17 at 11:50; Stop 01/18/18 at 11:49 Amitriptyline HCl (Elavil 25 Mg Tab (Or Equiv)) 100 mg QHS Last administered on 12/19/17at 21:09; Admin Dose 100 MG; Start 12/19/17 at 21:00; Stop 01/18/18 at 20:59 Escitalopram Oxalate (Lexapro 10 Mg Tab (Or Equiv)) 10 mg QDAY Last administered on 12/20/17at 07:25; Admin Dose 10 MG; Start 12/19/17 at 11:50; Stop 01/18/18 at 11:49 Muscle Strength and Tone: WNL Gait and Station: Steady [facility] Medications Reviewed: Side Effects, Benefits of Medication, Risks Allergies Reviewed: Yes Mental Status Exam General Appearance: Casual, Well Groomed, Good Eye Contact, Cooperative, Polite , Good Interaction Speech: Clear, Spontaneous, Normal Rate, Normal Rhythm, Normal Volume, Normal Tone Mood: Dysthmic/Depressed Affect: Full and Appropriate, Calm, No Sad, No Neutral, Anxious Thought Process: Organized, Logical, Goal Directed, No Loose Associations, No Flight of Ideas Thought Content: No Suicidal Ideation, No Homicidal Ideation, No Delusions, No Auditory Halllucinations, No Visual Hallucinations, No Thought Broadcasting, No Ideas of Reference, No Obsessions, No Compulsions Cognition: Alert & Oriented-Person, Alert & Oriented-Place, Alert & Oriented- Time, Nvymu-[id number]-Izhjvdqjv Memory: Immediate, Recent, Remote Intelligence: Average Insight Judgment: Intact, Appropriate, Poor Result Diagram: 12/19/17 0633 Lab Allergies Coded Allergies blueberry (Verified Allergy, Severe, HIVES, THROAT SELLING, 11/24/16) fentanyl (Verified Allergy, Unknown, DELUSIONS, 11/24/16) Microbiology ED Medications Multivitamins (Thera-M Enhanced Tab (Or Equiv)) 1 each QDAY Last administered on 12/20/17at 07:25; Admin Dose 1 EACH; Start 12/19/17 at 09:00; Stop 01/18/18 at 08:59 Diazepam (Valium(*) 10 Mg Tab (Or Equiv)) 10 mg PRN PRN Last administered on 12/19/17at 21:08; Admin Dose 10 MG; Start 12/19/17 at 02:55; Stop 01/02/18 at 02:54 Gabapentin (Neurontin(*) 300 Mg Cap (Or Equiv)) 600 mg TID Last administered on 12/20/17at 07:25; Admin Dose 600 MG; Start 12/19/17 at 14:00; Stop 01/18/18 at 13: 59 Diltiazem HCl (Cardizem Cd 120 Mg Capcr (Or Equiv)) 120 mg QDAY Last administered on 12/20/17at 07:25; Admin Dose 120 MG; Start 12/19/17 at 11:50; Stop 01/18/18 at 11:49 Lidocaine HCl (Lidocaine 2% Visc Sln (*) 15ml Udc) 15 ml PRN PRN Last administered on 12/20/17at 07:25; Admin Dose 15 ML; Start 12/19/17 at 11:50; Stop 01/18/18 at 11:49 Amitriptyline HCl (Elavil 25 Mg Tab (Or Equiv)) 100 mg QHS Last administered on 12/19/17at 21:09; Admin Dose 100 MG; Start 12/19/17 at 21:00; Stop 01/18/18 at 20:59 Escitalopram Oxalate (Lexapro 10 Mg Tab (Or Equiv)) 10 mg QDAY Last administered on 12/20/17at 07:25; Admin Dose 10 MG; Start 12/19/17 at 11:50; Stop 01/18/18 at 11:49 [facility] Assessment and Plan [id number] Encounter Date: Dec 20, 2017 Osty-st-Olxm Encounter Time: 11:39 [facility] Plan: Admit to Unit, Necessary Precautions, Individual/Group Therapy, Admin /Titrate Meds, Educate Patient Tobacco Medications: Started Multpiple Antipsychotics Used: No Problems: (1) Sedative hypnotic or anxiolytic dependence Status: Chronic (2) ANXIETY DISORDER, UNSPECIFIED Status: Chronic (3) Frostbite of hands, bilateral Status: Chronic (4) Raynauds syndrome Status: Chronic (5) COPD (chronic obstructive pulmonary disease) Status: Chronic (6) Benzodiazepine withdrawal without complication Status: Acute Condition Continue current medication and treatment [facility] protocol for benzodiazepine withdrawal Lengthy discussion regarding loin puller use of benzodiazepines, patient misunderstood he would be discharging on Valium States knows street people if he has to resort to that for help Irritable as discussed not intending to discharge on Diazepam GENIE DALY NP Dec 20, 2017 11:42
[2017-12-20 14:12] VITALS: BP 119/81
[2017-12-20] MEDS ORDERED: TOPIRAMATE 25 MG TAB PO ONE (14:15)
[2017-12-20] MEDS: hydrOXYzine PAMOATE 25 MG CAP PO PRN ×2 (16:43→22:16)
[2017-12-20 20:11] VITALS: BP 139/106
[2017-12-20 20:34] VITALS: BP 110/75
[2017-12-20] MEDS: AMITRIPTYLINE HCL 25 MG TAB PO SCH (20:44)
[2017-12-20] MEDS ORDERED: GABAPENTIN 300 MG CAP PO ONE (22:05)
[2017-12-21 06:02] VITALS: BP 134/83
[2017-12-21] MEDS: ESCITALOPRAM OXALATE 10 MG TAB PO SCH (08:30)
[2017-12-21] MEDS: DILTIAZEM CD 120 MG CAPCR PO SCH (08:30)
[2017-12-21] MEDS: GABAPENTIN 300 MG CAP PO SCH ×2 (08:30→13:57)
[2017-12-21] MEDS: MULTIVITAMINS TAB PO SCH (08:30)
[2017-12-21] MEDS ORDERED: TOPIRAMATE 25 MG TAB PO ONE (10:45)
[2017-12-21 11:02] VITALS: BP 116/87
[2017-12-21] MEDS ORDERED: TOPI-120 PO (13:11)
[2017-12-21] MEDS ORDERED: HYDR25CA83 PO (13:12)
[2017-12-21] MEDS ORDERED: MULT-859 PO (13:12)
--- NOTE | 2017-12-22 17:00 | DISCHARGE SUMMARY ---
Patient was seen at approximately 1100 hours on the morning of December 21, 2017 for note concerning this dictation. FINAL DIAGNOSES PER DSM-V Hypnotic use disorder, benzodiazepines, moderate to severe. Anxiety disorder unspecified. REASON FOR ADMISSION This is a well known 67-year-old male who was in the remote past initially started on benzodiazepines, particularly Klonopin, secondary to an injury of distal digits. Patient remained on benzodiazepines for many years. Patient has been struggling over the last few years to get off all benzodiazepines. Patient has been following up with outpatient providers that have prescribed limited quantities of Klonopin to this patient. Patient was noted to have called the unit, stating he had once again used his benzodiazepines to excess and had run out. Patient had been to urgent care to try to get more as well. Patient requesting voluntary admission for detox off benzodiazepines. Patient was admitted without incident, very calm, cooperative and polite throughout his stay. Benzodiazepine withdrawal was completed with the use of diazepam. Any further benzodiazepine withdrawal in this patient is likely to be psychogenic in nature. Patient has had full workup. Patient notably had imaging which was overall unremarkable as well at the time of admission. Patient responded to Topamax along with other anxiolytic medications patient was prescribed as an outpatient. Patient has a history of headaches as well. Patient not displaying any parasuicidal behaviors. Patient's appetite was good on the unit. Patient also sleeping well and patient discharged to home to continue follow-up care as an outpatient. PHYSICAL EXAMINATION GENERAL: Please see emergency room note. Notable for a 67-year-old male of thin body habitus. VITAL SIGNS: At the time of admission, temperature 98.2, pulse 63, blood pressure 128/79 and oxygen saturations were 90 on room air. At the time of discharge from [facility] vital signs showed a temperature of 98.5, pulse 75, respiratory rate 16, blood pressure 160/87, and pulse oximetry 87 on room air. LABORATORY DATA: Chemistry panel on December 19, 2017 notable for BUN elevated at 24 with an AST and an ALT elevated at 61 and 83 respectively. CBC was unremarkable at the time of admission. Total bilirubin noted to be elevated at 1.4 at the time of admission. Troponins were nondetectable. TSH 2.46. Urobilinogen was present in the urine. Toxicology screen positive for tricyclics which patient is prescribed. Negative for benzodiazepines. It is notable that Klonopin oftentimes does not show up on the urine toxicology, and it was also notable that the patient was positive for amphetamines at the time of admission, and confirmatory amphetamine screen is pending at the time of this incision. MENTAL STATUS EXAMINATION AT THE TIME OF DISCHARGE GENERAL APPEARANCE, BEHAVIOR AND ATTITUDE: This is a polite, cooperative 67- year-old male. No psychomotor agitation or retardation. No bizarre mannerisms or tics. Patient nontearful, making good eye contact, indicating an understanding of the need to avoid all benzodiazepines of any kind in the future , and work with outpatient providers to find successful ways to combat any ongoing underlying anxiety. SPEECH: Within normal limits, regular rate, rhythm, volume and tone. MOOD: Described as good. AFFECT: Full and bright. Mood congruent. THOUGHT PROCESSES: Goal directed, logical. No loose associations or flight of ideas. THOUGHT CONTENT: Free of auditory or visual hallucinations, ideas of reference , thought broadcastings, delusions, obsessions, compulsions. Patient adamantly denying suicidal or homicidal ideation. SENSORIUM: Clear. COGNITION: Alert and oriented to person, place, time and situation. MEMORY: Immediate, recent and remote estimated intact. INTELLIGENCE: Average based on interview and previous knowledge of this patient. INSIGHT AND JUDGMENT: Considered grossly intact in the absence of benzodiazepine use either prescribed or illicit. and avoidance of other substances. RESULTS OF TESTING IMAGING: Head CT was done on December 19, 2017 secondary to falls, was overall unremarkable. Please see electronic report for full data. LABORATORY DATA: See above. CONSULTATIONS: None. TREATMENT Patient received medications, participated in individual and group therapy. HOSPITAL COURSE Patient remained calm, pleasant and polite throughout his stay. Patient remains fixated to some degree on the use of benzodiazepines in the absence of physiologic withdrawal. Patient did continue to improve and seemed to respond to Topamax and the administration of other medications previously prescribed by outpatient provider. No suicidal ideation was noted. Patient in good spirits at the time of departure. CONDITION OF PATIENT ON DISCHARGE Stable, in the absence of benzodiazepine or other substance use, and considered minimal risk to himself or others. DISPOSITION Patient was discharged to home. He would follow up with outpatient medication management and therapy as scheduled. Patient agreed to abstain from all benzodiazepines int he future. Crisis line was given should symptoms return. Patient also agreed to abstain from any illicit substance use. DISCHARGE MEDICATIONS 1. Patient would remain on Cardizem 120 mg daily, which the patient has at home. 2. Patient would take Elavil 100 mg at bedtime. 3. Lexapro 10 mg daily. 4. Neurontin 900 mg three times a day. 5. Multivitamin with minerals daily. 6. Vistaril 25-50 mg p.o. every six hours p.r.n. for anxiety. 7. Script for Topamax 50 mg p.o. q.day for five days, then increased to 50 mg p.o. b.i.d. and continue until seen by outpatient provider. Patient once again agreed to abstain from all benzodiazepines, either prescribed or illicit, at the time of discharge. Risks, benefits and alternatives of the above discharge plan were discussed. Informed consent was given to proceed with above discharge plan by this competent patient. CHARLA
== END 2017-12-21 14:05 | disposition home or self-care (01) | DRG 897 ==
LOC: BHS 02:19
PROVIDERS: ADMIT Nurse Practitioner Psychiatric/Mental Health; ATTEND Nurse Practitioner Psychiatric/Mental Health
DX: F13.230 Sedative, hypnotic or anxiolytic dependence with withdrawal, uncomplicated (principal); F41.9 Anxiety disorder, unspecified; F19.21 Other psychoactive substance dependence, in remission; I73.00 Raynaud's syndrome without gangrene; J44.9 Chronic obstructive pulmonary disease, unspecified; Z89.022 Acquired absence of left finger(s); Z91.81 History of falling; Z81.8 Family history of other mental and behavioral disorders; Z87.891 Personal history of nicotine dependence
CPT/HCPCS: 36415; 80326; 82040; 82247; 82310; 82374; 82435; 82565; 82947; 84075; 84132; 84155; 84295; 84450; 84460; 84520; Q0177

== ENCOUNTER 2017-12-30 12:54 | Emergency (ER) | payer MEDICARE ==
[2016-05-02 08:31] VITALS: Wt 61.2 kg
[~2017-12-30 12:54] MED LIST changes: +HYDR25CA83 PO; +MULT-859 PO; +TOPI-120 PO
[2017-12-30] MEDS ORDERED: NS(*) 0.9% 1000 ML BAG 1,000 ML IV ONE (13:03)
[2017-12-30] MEDS ORDERED: ONDANSETRON 4 MG/2 ML VIAL IVP ONE (13:05)
--- NOTE | 2017-12-30 13:08 | ER Report ---
History and Physical Time Seen By MD: 13:05 HPI/ROS CHIEF COMPLAINT: Benzodiazepine withdrawal tremors HISTORY OF PRESENT ILLNESS: 67-year-old male long history of abuse of benzodiazepines returns to the emergency department after being out of his medication subjectively due to overuse last dose was 48 hours ago he is clearly tremors he's been seen here in several occasions for similar pains denies any chest pain abdominal pain but does feel somewhat nauseated no chest pain associated symptoms no additional complaints noted other than tremor REVIEW OF SYSTEMS: Respiratory: No cough, no dyspnea. Cardiovascular: No chest pain, no palpitations. Gastrointestinal: No vomiting, no abdominal pain. Musculoskeletal: No back pain. Remainder of the 14 system rev: Yes Allergies: Coded Allergies: blueberry (Verified Allergy, Severe, HIVES, THROAT SELLING, 11/24/16) fentanyl (Verified Allergy, Unknown, DELUSIONS, 11/24/16) Home Meds Active Scripts Albuterol Sul Hfa 90 Mcg 8 Gm (VENTOLIN HFA 90 MCG 8 GM) 8.5 Gm Hfa.aer.ad, 2 PUFF IH Q4-6H Y for shortness of breath, #1 Prov:SAMMI DE JESUS DO 07/03/14 Reported Medications Hydroxyzine Pamoate (VISTARIL) 25 Mg Capsule, 25-50 MG PO Q6H Y for ANXIETY, CAPSULE 12/21/17 Multivits,Ca,Minerals/Iron/Fa (THERA-M TABLET) 1 Each Tablet, 1 EACH PO DAILY 12/21/17 Topiramate (TOPAMAX) 50 Mg Tablet, 50 MG PO QHS Take 50mg every night for 5 days, then take 50mg twice daily and continue. 12/21/17 Diltiazem Hcl (CARTIA XT) 120 Mg Cap.er.24h, 120 MG PO QDAY 10/11/17 Escitalopram Oxalate (ESCITALOPRAM OXALATE) 10 Mg Tablet, 10 MG PO QDAY, TAB 10/11/17 Amitriptyline Hcl (AMITRIPTYLINE HCL) 50 Mg Tablet, 50-200 MG PO QHS 10/11/17 Gabapentin (GABAPENTIN) 300 Mg Capsule, 900 MG PO TID, CAPSULE 11/26/16 Reviewed Nurses Notes: Yes Old Medical Records Reviewed: Yes Hx Smoking: No Smoking Status: Never Smoker Hx Substance Use Disorder: No (DENIES) Hx Alcohol Use: No Constitutional Vital Sign - Last 24 Hours 12/30/17 13:01 Pulse 108 Resp 24 B/P (MAP) 141/98 Pulse Ox 82 O2 Delivery Room Air Physical Exam General Appearance: The patient is alert, has no immediate need for airway protection and no current signs of toxicity. Tremorous Eyes: Pupils equal and round no injection. Respiratory: Chest is non tender, lungs are clear to auscultation. Cardiac: regular rate and rhythm [ ] Gastrointestinal: Abdomen is soft and non tender, no masses, bowel sounds normal. Musculoskeletal: Neck: Neck is supple and non tender. Extremities have full range of motion and are non tender. Skin: No rashes or lesions. [ ] DIFFERENTIAL DIAGNOSIS: After history and physical exam differential diagnosis was considered for benzodiazepine withdrawal Medical Decision Making Data Points Result Diagram: 12/30/17 1325 12/30/17 1325 Laboratory Hematology Test 12/30/17 13:25 Red Blood Count 5.60 M/uL (4.00-5.60) Mean Corpuscular Volume 91.5 fL (80.0-96.0) Mean Corpuscular Hemoglobin 31.7 pg (26.0-33.0) Mean Corpuscular Hemoglobin Concent 34.7 g/dL (32.0-36.0) Red Cell Distribution Width 13.4 % (11.5-14.5) Mean Platelet Volume 6.6 fL (7.2-11.1) Neutrophils (%) (Auto) 82.4 % (39.4-72.5) Lymphocytes (%) (Auto) 10.2 % (17.6-49.6) Monocytes (%) (Auto) 5.6 % (4.1-12.4) Eosinophils (%) (Auto) 1.3 % (0.4-6.7) Basophils (%) (Auto) 0.5 % (0.3-1.4) Nucleated RBC Relative Count (auto) 0.1 /100WBC Neutrophils # (Auto) 10.0 K/uL (2.0-7.4) Lymphocytes # (Auto) 1.2 K/uL (1.3-3.6) Monocytes # (Auto) 0.7 K/uL (0.3-1.0) Eosinophils # (Auto) 0.2 K/uL (0.0-0.5) Basophils # (Auto) 0.1 K/uL (0.0-0.1) Nucleated RBC Absolute Count (auto) 0.01 K/uL Sodium Level 141 mmol/L (137-145) Potassium Level 3.3 mmol/L (3.5-5.0) Chloride Level 104 mmol/L (98-107) Carbon Dioxide Level 24 mmol/L (22-30) Blood Urea Nitrogen 17 mg/dl (9-21) Creatinine 1.30 mg/dl (0.66-1.25) Glomerular Filtration Rate Calc 55.1 Random Glucose 119 mg/dl (75-110) Calcium Level 9.1 mg/dl (8.4-10.2) Total Bilirubin 0.9 mg/dl (0.2-1.3) Aspartate Amino Transf (AST/SGOT) 47 U/L (0-35) Alanine Aminotransferase (ALT/SGPT) 58 U/L (0-56) Alkaline Phosphatase 140 U/L (0-126) Total Protein 7.7 g/dl (6.3-8.2) Albumin 4.1 g/dl (3.5-5.0) Lipase 266 U/L (23-300) Serum Alcohol < 10 mg/dl Chemistry Test 12/30/17 13:25 White Blood Count 12.1 k/uL (4.5-11.0) Red Blood Count 5.60 M/uL (4.00-5.60) Hemoglobin 17.8 g/dL (14.0-18.0) Hematocrit 51.2 % (42.0-52.0) Mean Corpuscular Volume 91.5 fL (80.0-96.0) Mean Corpuscular Hemoglobin 31.7 pg (26.0-33.0) Mean Corpuscular Hemoglobin Concent 34.7 g/dL (32.0-36.0) Red Cell Distribution Width 13.4 % (11.5-14.5) Platelet Count 373 K/uL (150-450) Mean Platelet Volume 6.6 fL (7.2-11.1) Neutrophils (%) (Auto) 82.4 % (39.4-72.5) Lymphocytes (%) (Auto) 10.2 % (17.6-49.6) Monocytes (%) (Auto) 5.6 % (4.1-12.4) Eosinophils (%) (Auto) 1.3 % (0.4-6.7) Basophils (%) (Auto) 0.5 % (0.3-1.4) Nucleated RBC Relative Count (auto) 0.1 /100WBC Neutrophils # (Auto) 10.0 K/uL (2.0-7.4) Lymphocytes # (Auto) 1.2 K/uL (1.3-3.6) Monocytes # (Auto) 0.7 K/uL (0.3-1.0) Eosinophils # (Auto) 0.2 K/uL (0.0-0.5) Basophils # (Auto) 0.1 K/uL (0.0-0.1) Nucleated RBC Absolute Count (auto) 0.01 K/uL Glomerular Filtration Rate Calc 55.1 Calcium Level 9.1 mg/dl (8.4-10.2) Total Bilirubin 0.9 mg/dl (0.2-1.3) Aspartate Amino Transf (AST/SGOT) 47 U/L (0-35) Alanine Aminotransferase (ALT/SGPT) 58 U/L (0-56) Alkaline Phosphatase 140 U/L (0-126) Total Protein 7.7 g/dl (6.3-8.2) Albumin 4.1 g/dl (3.5-5.0) Lipase 266 U/L (23-300) Serum Alcohol < 10 mg/dl Toxicology Test 12/30/17 13:25 Serum Alcohol < 10 mg/dl ED Course/Re-evaluation ED Course ED clinical course 6-7 mL clear long history of dependence on benzodiazepine also been getting regular prescriptions for tramadol comes in and clear and obvious benzodiazepine withdrawal he is well-known to our behavioral health floor spoke to the psychiatrist on duty who agreed that he needs to be admitted the hospital initially attempted a voluntary admission he declined was willing to do a involuntary due to his mental incompetence his inability to determine his own healthcare the fact that he was not alert and oriented at baseline and his behaviors were self-destructive he after long discussion agreed to voluntary admit himself into behavioral health for benzodiazepine addiction withdrawal and medical management Decision to Disposition Date: Dec 30, 2017 Decision to Disposition Time: 14:36 Depart Departure Latest Vital Signs Vital Signs Date Time Temp Pulse Resp B/P (MAP) Pulse Ox O2 Delivery O2 Flow Rate FiO2 12/30/17 13:01 108 24 141/98 82 Room Air Impression: Primary Impression: Benzodiazepine abuse Condition: Improved Disposition: XFER TO [facility] Referrals: NETTE HAND MD (PCP) ENRIQUE DUKES MD Dec 30, 2017 13:08
[2017-12-30 13:35] LABS: PLATELET COUNT, AUTOMATED 373 K/uL (150-450)
[2017-12-30 14:49] VITALS: BP 106/100
--- NOTE | 2017-12-30 14:49 | RADIOLOGY IMAGING REPORT ---
FACILITY: [facility] PATIENT NAME: Adarsh Tovar : 1950 MR: [id number] V: [id number] EXAM DATE: ORDERING PHYSICIAN: ENRIQUE DUKES TECHNOLOGIST: Location: [facility] - [place] Patient: Adarsh Tovar : 1950 Visit/Account:[id number] Date of Sevice: 12/30/2017 Exam type: CHEST PA AND LAT History: cough Comparison: October 11, 2017. Findings: The lungs are free of acute effusions, infiltrates or edema. The cardiac silhouette is normal in siz e. There is moderate ectasia the thoracic aorta. Suggestion of a hiatal hernia. Serpiginous radiop aque density projects over the right pulmonary apex which may be an artifact clinical correlation nee ded. There are mild spondylotic changes of the thoracic spine IMPRESSION: 1. No acute cardiopulmonary process is seen Report Dictated By: Lilia Shetty MD at 12/30/2017 2:42 PM Report E-Signed By: Lilia Shetty MD at 12/30/2017 2:43 PM WSN:[id number]
== END 2017-12-30 15:18 ==
LOC: ER 12:59
DX: F19.239 Other psychoactive substance dependence with withdrawal, unspecified (principal)
CPT/HCPCS: 71046; 80305; 81001; 83690; 85025; 96372; 99284; G0480; J2405; J7030; 80320; 82040; 82247; 82310; 82374; 82435; 82565; 82947; 84075; 84132; 84155; 84295; 84450; 84460; 84520; 96374

== ENCOUNTER 2017-12-30 14:48 | Inpatient (IN) | payer MEDICARE ==
[2016-05-02 08:31] VITALS: Ht 167.6 cm; Wt 61.2 kg
[~2017-12-30] VITALS: Ht 167.6 cm; Wt 61.2 kg
[2017-12-30] MEDS ORDERED: MAG HYD/AL HYD/SIMETH 30ML UDC PO PRN (15:25)
[2017-12-30] MEDS: DIAZEPAM 10 MG TAB PO PRN ×2 (16:17→22:35)
--- NOTE | 2017-12-30 16:45 | EKG ---
FAC[place] [facility] [place]IENT NAME: MARY JACQUES : [id number] MR: [id number] V: [id number] EXAM DATE: ORDERING PHYSICIAN: SERGIO GILLILAND TECHNOLOGIST: Test Reason : Blood Pressure : / mmHG Vent. Rate : 093 BPM Atrial Rate : 093 BPM P-R Int : 184 ms QRS Dur : 158 ms QT Int : 428 ms P-R-T Axes : 057 270 049 degrees QTc Int : 532 ms Normal sinus rhythm Right bundle branch block Left anterior fascicular block Bifascicular block Abnormal ECG When compared with ECG of 19-DEC-2017 00:43, Right bundle branch block has replaced Nonspecific intraventricular block Confirmed by ONEL TYSON ([id number]) on 12/30/2017 5:11:02 PM Referred By: Confirmed By:ONEL TYSON
[2017-12-30] MEDS ORDERED: NS(*) 0.9% 1000 ML BAG 1,000 ML IV ONE (17:35)
[2017-12-30] MEDS: GABAPENTIN 300 MG CAP PO SCH ×2 (18:04→21:00)
[2017-12-30] MEDS: TOPIRAMATE 25 MG TAB PO SCH (22:50)
[2017-12-31 04:30] VITALS: BP 124/82
[2017-12-31 06:35] LABS: PLATELET COUNT, AUTOMATED 328 K/uL (150-450)
[2017-12-31] MEDS: GABAPENTIN 300 MG CAP PO SCH ×5 (07:58→21:45)
[2017-12-31] MEDS: MULTIVITAMINS TAB PO SCH (07:59)
[2017-12-31] MEDS: DILTIAZEM CD 120 MG CAPCR PO SCH (07:59)
[2017-12-31] MEDS: FOLIC ACID 1 MG TAB PO SCH (07:59)
[2017-12-31] MEDS: ESCITALOPRAM OXALATE 10 MG TAB PO SCH (07:59)
[2017-12-31] MEDS: TOPIRAMATE 25 MG TAB PO SCH ×3 (07:59→21:45)
[2017-12-31] MEDS: THIAMINE HCL 100 MG TAB PO SCH (08:00)
[2017-12-31 08:35] VITALS: BP 116/75
[2017-12-31] MEDS ORDERED: DILTIAZEM IR 30 MG TAB PO SCH (09:00)
[2017-12-31 13:05] VITALS: BP 118/79
--- NOTE | 2017-12-31 14:49 | EKG ---
FACILITY: [facility] PATIENT NAME: MARY JACQUES : [id number] MR: [id number] V: [id number] EXAM DATE: ORDERING PHYSICIAN: SERGIO GILLILAND TECHNOLOGIST: Test Reason : Blood Pressure : / mmHG Vent. Rate : 066 BPM Atrial Rate : 066 BPM P-R Int : 176 ms QRS Dur : 140 ms QT Int : 460 ms P-R-T Axes : 039 -75 -13 degrees QTc Int : 482 ms Normal sinus rhythm Nonspecific intraventricular block Abnormal ECG When compared with ECG of 30-DEC-2017 16:28, Nonspecific intraventricular block has replaced Right bundle branch block Confirmed by BRENDA COOL ([id number]) on 12/31/2017 3:32:06 PM Referred By: Confirmed By:BRENDA COOL
[2017-12-31] MEDS: IBUPROFEN 600 MG TAB PO PRN (15:41)
--- NOTE | 2017-12-31 16:48 | HISTORY AND PHYSICAL ---
DATE OF ADMISSION: December 30, 2017 The patient was seen at approximately 0930 hours on 31 December 2017 for note concerning this dictation. PRESENTING PROBLEM AND CHIEF COMPLAINT Benzodiazepine withdrawal. HISTORY OF PRESENT ILLNESS This is a very well-known, 67-year-old male who was notably on the unit under very similar conditions from December 19 to December 21, 2017. Patient cooperative with interview, stating that he fallen on his front porch. Patient's neighbor witnessed this, patient's neighbor asking if he needed help. Patient reported that his neighbor eventually took him to the hospital. Patient was in the ER. Patient felt coerced by ER physician in coming to the unit in what appeared to be an obvious state of benzodiazepine withdrawal. Patient, however, cooperative with admission, then decompensating immediately upon being admitted , and purposely walking unassisted when notably patient's chief complaint has been falls at home, which he is "terrified of". Patient notably able to talk to ex-significant other on the phone in a coherent manner; however, shortly after that, patient appeared to lose his balance, was not able to communicate effectively and fell, which resulted in a CODE BLUE on the unit. However, this seems to be related to dehydration, and hypoxia mostly rather than inadequately treated benzodiazepine withdrawal, and likely has a psychogenic component as well. Patient encouraged strongly over the last several years to stop all benzodiazepines. Patient was again encouraged to stop benzodiazepine use after discharge on December 21, 2017. Patient admits that he continues to seek benzodiazepines. He has a remote history, it is believed, of alcoholism that has been in full remission, and patient was notably placed on Klonopin many years ago and remained on that for years. Patient also has current COPD, and when patient uses benzodiazepines, this likely leads to further desaturations in oxygen as patient is not known to be cooperative with O2 nasal cannula at home, and this likely corresponds to further cognition decompensation and instability of gait and falls. At this point, patient is ambivalent about treatment, noted to be asking nurse this a.m. for Valium, and when told he was not in need of any Valium, patient then reporting that he may want to leave the hospital. Patient strongly encouraged to complete benzodiazepine withdrawal here on the unit and enter residential treatment at this time. Will seek further support from community in encouraging this endeavor from community members whom patient knows in encouraging this endeavor. Patient denies any other concerns currently. MENTAL HEALTH HISTORY Please see dictation from December 19, 2017. FAMILY, PSYCHIATRIC, PAST MEDICAL HISTORY, SOCIAL HISTORY, LEGAL HISTORY, AND SUBSTANCE ABUSE HISTORY Please see H and P from December 19, 2017. PHYSICAL EXAMINATION Please see emergency room note. Notable for: GENERAL: A 67-year-old male who is becoming more and more frail-appearing with every admission. Patient appearing to be in benzodiazepine withdrawal at time of admission. VITAL SIGNS: Pulse 108, respiratory rate 24, blood pressure 141/98, and pulse oximetry low at 82 while on room air. LABORATORY DATA Notable for WBCs elevated at 12.1, otherwise unremarkable CBC. Chemistry panel notable for potassium low at 3.3, creatinine 1.30, AST 47 and elevated, ALT 58 and elevated. Alkaline phosphatase elevated at 140. Toxicology screen positive for benzodiazepines, which the patient should not be on, and tricyclics. Patient noted to take amitriptyline. Serum alcohol level undetectable. Urinalysis notable for urobilinogen present, otherwise unremarkable. MENTAL STATUS EXAMINATION GENERAL APPEARANCE, BEHAVIOR, AND ATTITUDE: This is an overall cooperative, 67- year-old male who is able to communicate effectively and give evidence of very accurate memory at times. Patient also at times seemingly falling back into speech that is difficult to understand and seemingly having poor memory of certain events. Patient making good eye contact. No periods of tearfulness. SPEECH: Nearly considered baseline in this well-known patient during initial interview. MOOD: Described as frustrated and ambivalent in many ways. AFFECT: Full at times and mood congruent. THOUGHT PROCESSES: Seem goal directed, but variable to a degree. No obvious loose associations or flight of ideas were detected. THOUGHT CONTENT: Free of auditory or visual hallucinations, ideas of reference , thought broadcasting, delusions, obsessions, compulsions. Patient speaking in a manner suggestive of vague thoughts that it would be okay if his life ended , but denying outright suicidal or homicidal ideations. SENSORIUM: Clear. COGNITION: Alert and oriented to person, place, time, and situation. MEMORY: Immediate, recent, and remote appear to be grossly intact during interview at least. INTELLIGENCE: Historically average based on interviews and previous knowledge of this patient. INSIGHT AND JUDGMENT: Likely considered fully intact when patient not under the influence of benzodiazepines or other illicit substances and while patient not hypoxic. ASSESSMENT This is a very well-known 67-year-old male who appears to seek out benzodiazepines which patient has been warned repeatedly not to use. Patient suffering from hypoxia, and it is doubtful he is adequately managing this at home. Patient returns to the unit in a state of dehydration/hypoxia and likely the beginnings of poor nutritional status. Will continue to evaluate. Will encourage patient to enter residential treatment for substance abuse at this time. Will also get records from Neurology and continue to look for any other cause of patient's continued decompensation at home. DIAGNOSES 1. Hypnotic use disorder, severe, benzodiazepines. 2. Hypnotic withdrawal, benzodiazepines. 3. Anxiety disorder, unspecified. 4. Rule out confusion secondary to general medical condition hypoxia and social stressors. PLAN 1. Admit to the unit. 2. Necessary precautions be implemented. 3. Patient will participate in individual and group therapy. 4. Medications will be used to treat alcohol withdrawal as well as will continue to investigate use of benzodiazepines on an outpatient basis in general and look at other medications that may be contributing to patient's confusion. 5. Will contact collateral information and strongly encourage entrance into residential treatment for substance use. 6. Estimated length of stay unknown. PLAN [*] MTDD
[2018-01-01 03:30] VITALS: BP 114/83
[2018-01-01 08:00] VITALS: BP 124/72
[2018-01-01] MEDS: DILTIAZEM CD 120 MG CAPCR PO SCH (08:14)
[2018-01-01] MEDS: GABAPENTIN 300 MG CAP PO SCH ×3 (08:15→20:53)
[2018-01-01] MEDS: ESCITALOPRAM OXALATE 10 MG TAB PO SCH (08:15)
[2018-01-01] MEDS: THIAMINE HCL 100 MG TAB PO SCH (08:15)
[2018-01-01] MEDS: MULTIVITAMINS TAB PO SCH (08:15)
[2018-01-01] MEDS: TOPIRAMATE 25 MG TAB PO SCH ×2 (08:15→20:53)
[2018-01-01] MEDS: FOLIC ACID 1 MG TAB PO SCH (08:15)
[2018-01-01 12:00] VITALS: BP 112/76
[2018-01-01] MEDS: IBUPROFEN 600 MG TAB PO PRN (13:05)
--- NOTE | 2018-01-01 13:50 | BHS Progress Note ---
[facility] - Subjective Progress Notes Subjective Patient continues to be cooperative on the unit, with sporadic episodes of what can be best described as drug seeking behavior, namely aimed at obtaining benzodiazepines. Patient continues to be monitored and treated for withdrawal and continues to strongly encouraged to enter residential rehab for benzodiazepine addiction. Patient remains somewhat ambivalent about process, but today states he is 80% sure he would like to go. Patient notably sleeping well last PM with good appetite. No other concerns today. Suicidal Ideation: None Homicidal Ideation: None [facility] - Objective Physical Exam Vital Signs Vital Signs Date Time Temp Pulse Resp B/P (MAP) Pulse Ox O2 Delivery O2 Flow Rate FiO2 01/01/18 12:00 98.0 90 16 112/76 (88) 90 Nasal Cannula 2.0 Hematology Test 12/30/17 17:05 12/31/17 06:19 12/31/17 19:32 Whole Blood Glucose 120 mg/DL (75-110) Troponin I < 0.012 ng/ml Red Blood Count 4.60 M/uL (4.00-5.60) Mean Corpuscular Volume 92.4 fL (80.0-96.0) Mean Corpuscular Hemoglobin 32.1 pg (26.0-33.0) Mean Corpuscular Hemoglobin Concent 34.7 g/dL (32.0-36.0) Red Cell Distribution Width 13.1 % (11.5-14.5) Mean Platelet Volume 6.5 fL (7.2-11.1) Neutrophils (%) (Auto) 62.8 % (39.4-72.5) Lymphocytes (%) (Auto) 22.9 % (17.6-49.6) Monocytes (%) (Auto) 8.0 % (4.1-12.4) Eosinophils (%) (Auto) 5.4 % (0.4-6.7) Basophils (%) (Auto) 0.9 % (0.3-1.4) Nucleated RBC Relative Count (auto) 0.0 /100WBC Neutrophils # (Auto) 5.4 K/uL (2.0-7.4) Lymphocytes # (Auto) 2.0 K/uL (1.3-3.6) Monocytes # (Auto) 0.7 K/uL (0.3-1.0) Eosinophils # (Auto) 0.5 K/uL (0.0-0.5) Basophils # (Auto) 0.1 K/uL (0.0-0.1) Nucleated RBC Absolute Count (auto) 0.00 K/uL Sodium Level 143 mmol/L (137-145) Potassium Level 3.5 mmol/L (3.5-5.0) Chloride Level 110 mmol/L (98-107) Carbon Dioxide Level 21 mmol/L (22-30) Blood Urea Nitrogen 16 mg/dl (9-21) Creatinine 1.30 mg/dl (0.66-1.25) Glomerular Filtration Rate Calc 55.1 Random Glucose 87 mg/dl (75-110) Calcium Level 8.1 mg/dl (8.4-10.2) Magnesium Level 2.0 mg/dl (1.7-2.2) Total Bilirubin 0.5 mg/dl (0.2-1.3) Aspartate Amino Transf (AST/SGOT) 41 U/L (0-35) Alanine Aminotransferase (ALT/SGPT) 60 U/L (0-56) Alkaline Phosphatase 97 U/L (0-126) Total Protein 5.4 g/dl (6.3-8.2) Albumin 2.7 g/dl (3.5-5.0) Chemistry Test 12/30/17 17:05 12/31/17 06:19 12/31/17 19:32 Whole Blood Glucose 120 mg/DL (75-110) Troponin I < 0.012 ng/ml White Blood Count 8.6 k/uL (4.5-11.0) Red Blood Count 4.60 M/uL (4.00-5.60) Hemoglobin 14.8 g/dL (14.0-18.0) Hematocrit 42.5 % (42.0-52.0) Mean Corpuscular Volume 92.4 fL (80.0-96.0) Mean Corpuscular Hemoglobin 32.1 pg (26.0-33.0) Mean Corpuscular Hemoglobin Concent 34.7 g/dL (32.0-36.0) Red Cell Distribution Width 13.1 % (11.5-14.5) Platelet Count 328 K/uL (150-450) Mean Platelet Volume 6.5 fL (7.2-11.1) Neutrophils (%) (Auto) 62.8 % (39.4-72.5) Lymphocytes (%) (Auto) 22.9 % (17.6-49.6) Monocytes (%) (Auto) 8.0 % (4.1-12.4) Eosinophils (%) (Auto) 5.4 % (0.4-6.7) Basophils (%) (Auto) 0.9 % (0.3-1.4) Nucleated RBC Relative Count (auto) 0.0 /100WBC Neutrophils # (Auto) 5.4 K/uL (2.0-7.4) Lymphocytes # (Auto) 2.0 K/uL (1.3-3.6) Monocytes # (Auto) 0.7 K/uL (0.3-1.0) Eosinophils # (Auto) 0.5 K/uL (0.0-0.5) Basophils # (Auto) 0.1 K/uL (0.0-0.1) Nucleated RBC Absolute Count (auto) 0.00 K/uL Glomerular Filtration Rate Calc 55.1 Calcium Level 8.1 mg/dl (8.4-10.2) Magnesium Level 2.0 mg/dl (1.7-2.2) Total Bilirubin 0.5 mg/dl (0.2-1.3) Aspartate Amino Transf (AST/SGOT) 41 U/L (0-35) Alanine Aminotransferase (ALT/SGPT) 60 U/L (0-56) Alkaline Phosphatase 97 U/L (0-126) Total Protein 5.4 g/dl (6.3-8.2) Albumin 2.7 g/dl (3.5-5.0) Muscle Strength and Tone: Other (instability) Gait and Station: Unsteady [facility] Medications Reviewed: Side Effects, Benefits of Medication, Risks Allergies Reviewed: Yes Mental Status Exam General Appearance: Casual, Well Groomed, Good Eye Contact, Cooperative, Polite , Good Interaction, No Unkept, No Tearful, No Psychomotor Agitation, No Psychomotor Retardation, No Bizarre Mannerisms, No Tics Speech: Clear, Spontaneous, Normal Rate, Normal Rhythm, Normal Volume, Normal Tone, Garbled Mood: Dysthmic/Depressed (frustrated) Affect: Full and Appropriate, No Sad, No Flat, No Withdrawn, No Tearful, Anxious, No Agitated Thought Process: Organized, Logical, Goal Directed, No Loose Associations, No Flight of Ideas Thought Content: No Suicidal Ideation (frustrated), No Homicidal Ideation, No Delusions, No Auditory Halllucinations, No Visual Hallucinations, No Thought Broadcasting, No Ideas of Reference, No Obsessions, No Compulsions Sensorium: Clear Cognition: Alert & Oriented-Person, Alert & Oriented-Place, Alert & Oriented- Time, Qlksy-Xslubcal-Vpuhsmwjb Memory: Recent Intelligence: Average Insight Judgment: Poor (limited by ongoing addiction. 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 patient in need of entrance into residential rehab. 2. continue to encourage compliance with treatment and residential rehab. SERGIO GILLILAND MD Jan 01, 2018 13:50
[2018-01-01 16:23] VITALS: BP 128/68
[2018-01-01 20:12] VITALS: BP 114/62
[2018-01-02 04:47] VITALS: BP 130/88
[2018-01-02] MEDS: TOPIRAMATE 25 MG TAB PO SCH (08:18)
[2018-01-02] MEDS: MULTIVITAMINS TAB PO SCH (08:18)
[2018-01-02] MEDS: GABAPENTIN 300 MG CAP PO SCH (08:18)
[2018-01-02] MEDS: FOLIC ACID 1 MG TAB PO SCH (08:18)
[2018-01-02] MEDS: THIAMINE HCL 100 MG TAB PO SCH (08:18)
[2018-01-02] MEDS: ESCITALOPRAM OXALATE 10 MG TAB PO SCH (08:18)
[2018-01-02] MEDS: DILTIAZEM CD 120 MG CAPCR PO SCH (08:19)
[2018-01-02 08:39] VITALS: BP 124/78
--- NOTE | 2018-01-02 10:31 | BHS Progress Note ---
S - Subjective Progress Notes Subjective "I'm not going up to [place]." Continues to resist option of residential treatment facility for benzodiazepine addiction Lengthy discussion regarding outpatient resources available - Agrees with Home Health Care to assist with PT/Nursing/GIS INSTRUCTOR services appropriate for patient Encourage consultation with cardiopulmonary and home oxygen company for review of portable oxygen options to increase compliance Encourage adequate hydration to avoid dehydration Encourage ongoing outpatient therapy, therapist contacted with appt. set prior to discharge Encourage ongoing medical and psychiatric medication management upon dc Encourage use of crisis line, return to ER for worsening symptoms, SI/HI Laboratory Tests Test 01/02/18 05:13 Sodium Level 141 mmol/L Potassium Level 3.8 mmol/L Chloride Level 107 mmol/L Carbon Dioxide Level 23 mmol/L Blood Urea Nitrogen 14 mg/dl Creatinine 1.00 mg/dl Glomerular Filtration Rate Calc > 60.0 Random Glucose 98 mg/dl Calcium Level 8.6 mg/dl Total Bilirubin 0.4 mg/dl Aspartate Amino Transf (AST/SGOT) 24 U/L Alanine Aminotransferase (ALT/SGPT) 50 U/L Alkaline Phosphatase 114 U/L Total Protein 6.0 g/dl Albumin 3.0 g/dl Current Medications Medications (Trade) Dose Ordered Sig/La Route PRN Reason Start Time Stop Time Status Last Admin Dose Admin Diazepam (Valium(*) 10 Mg Tab (Or Equiv)) 20 mg Q1H PRN PO FOLLOW CIWA PROTOCOL 12/30/17 15:25 01/13/18 15:24 12/30/17 22:35 Al Hydrox/Mg Hydrox/Simethicone (Maalox(*) 30 ml Udcup (Or Equiv)) 30 ml Q4H PRN PO HEARTBURN 12/30/17 15:25 01/29/18 15:24 01/01/18 20:54 Multivitamins (Thera-M Enhanced Tab (Or Equiv)) 1 each QDAY PO 12/31/17 09:00 01/30/18 08:59 01/02/18 08:18 Ibuprofen (Motrin (*) 600 Mg Tab (Or Equiv)) 600 mg Q6H PRN PO PAIN 12/30/17 15:25 01/29/18 15:24 01/01/18 13:05 Gabapentin (Neurontin(*) 300 Mg Cap (Or Equiv)) 600 mg TID PO 12/30/17 16:20 01/01/18 13:59 DC 01/01/18 08:15 Thiamine HCl (Vitamin B-1(*) 100 Mg Tab (Or Equiv)) 100 mg QDAY PO 12/31/17 09:00 01/30/18 08:59 01/02/18 08:18 Folic Acid (Folic Acid (*) 1 Mg Tab) 1 mg QDAY PO 12/31/17 09:00 01/30/18 08:59 01/02/18 08:18 Sodium Chloride 1,000 ml @ 0 mls/hr Q0M ONCE IV 12/30/17 17:35 12/30/17 17:37 DC 12/30/17 17:59 Topiramate (Topamax 25 Mg Tab (Or Equiv)) 50 mg BID PO 12/30/17 22:50 01/29/18 22:49 01/02/18 08:18 Escitalopram Oxalate (Lexapro 10 Mg Tab (Or Equiv)) 10 mg QDAY PO 12/31/17 09:00 01/30/18 08:59 01/02/18 08:18 Diltiazem HCl (Cardizem Ir 30 Mg Tab (Or Equiv)) 120 mg DAILY PO 12/31/17 09:00 01/30/18 08:59 Cancel Diltiazem HCl (Cardizem Cd 120 Mg Capcr (Or Equiv)) 120 mg QDAY PO 12/31/17 09:00 01/30/18 08:59 01/02/18 08:19 Gabapentin (Neurontin(*) 300 Mg Cap (Or Equiv)) 600 mg TID PO 01/01/18 14:00 01/31/18 13:59 01/02/18 08:18 Suicidal Ideation: None Homicidal Ideation: None BHS - Objective Physical Exam Vital Signs Vital Signs Date Time Temp Pulse Resp B/P (MAP) Pulse Ox O2 Delivery O2 Flow Rate FiO2 01/02/18 08:39 98.2 90 18 124/78 (93) 96 Nasal Cannula 01/02/18 04:47 2.0 Deferred Laboratory - CBC/BMP Diagrams 01/02/18 05:13 Muscle Strength and Tone: Other (instability) Gait and Station: Unsteady [facility] Medications Reviewed: Side Effects, Benefits of Medication, Risks Allergies Reviewed: Yes Mental Status Exam General Appearance: Casual, Well Groomed, Good Eye Contact, Cooperative, Polite , Good Interaction, No Unkept, No Tearful, No Psychomotor Agitation, No Psychomotor Retardation, No Bizarre Mannerisms, No Tics Speech: Clear, Spontaneous, Normal Rate, Normal Rhythm, Normal Volume, Normal Tone, No Garbled Mood: Dysthmic/Depressed (rates depression 11/19 anxiety 10/15) Affect: Full and Appropriate, No Sad, No Flat, No Withdrawn, No Tearful, Anxious, No Agitated Thought Process: Organized, Logical, Goal Directed, No Loose Associations, No Flight of Ideas Thought Content: No Homicidal Ideation, No Delusions, No Auditory Halllucinations, No Visual Hallucinations, No Thought Broadcasting, No Ideas of Reference, No Obsessions, No Compulsions Sensorium: Clear Cognition: Alert & Oriented-Person, Alert & Oriented-Place, Alert & Oriented- Time, [id number]-[id number] Memory: Recent Intelligence: Average Insight Judgment: Poor (limited by ongoing addiction. 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
[2018-01-02] MEDS ORDERED: FOLI-68 PO (11:26)
[2018-01-02] MEDS ORDERED: THIA100T58 PO (11:30)
--- NOTE | 2018-01-02 16:12 | DISCHARGE SUMMARY ---
DATE OF ADMISSION: December 30, 2017 DATE OF DISCHARGE: January 02, 2018 FINAL DIAGNOSES PER DIAGNOSTIC AND STATISTICAL MANUAL OF MENTAL DISORDERS, FIFTH EDITION 1. Sedative hypnotic use disorder, benzodiazepines, moderate to severe. 2. Unspecific anxiety disorder. REASON FOR ADMISSION This is a 67-year-old male who has a history of previous admissions related to sedative hypnotic use disorder, specifically benzodiazepines, on the Behavioral Health Unit. He was initially started on benzodiazepines, particularly Klonopin , secondary to an injury of his distal digits. Patient remained on the benzodiazepines for many years and has reported a desire to withdraw from them and abstain from use, although has had difficulty with withdrawal symptoms. More recently, he has had admissions related to falls at home. He has been tapered off benzodiazepine by his outpatient provider and has reported that he can purchase these on the streets if not able to obtain prescriptions. Patient was discharged from the Behavioral Health Unit approximately two weeks prior to this admission with recommendations to follow up with outpatient providers for medication management and abstain from benzodiazepine use. He denies return to use during discharge interview, although per emergency room documentation, he had used since last discharge and again was reportedly having falls at home with decline in activity level and lacking adequate hydration, which also may be contributing factors to his falls. Patient was agreeable to a voluntary admission with strong encouragement for residential substance abuse rehabilitation due to lengthy sedative hypnotic misuse, although he is declining this option at time of discharge interview. Patient did have a fall while on the unit resulting in a CODE BLUE being called. He was not transferred to the intensive care unit and stabilized until his discharged. Patient did have prolonged QTc per EKG evaluation, and amitriptyline has been discontinued during this admission. Patient's QTc was down to 482 prior to discharge. Patient is reporting low depression and anxiety at time of discharge interview. He has been more compliant with his oxygen use, and discharge instructions were reviewed in length prior to his leaving after it was determined that residential rehab was not going to be accepted by this patient, who would benefit from this. He was agreeable to ongoing outpatient individual therapy with this appointment being made prior to his discharge. He is going to follow up with his medical and psychiatric medication providers and was agreeable to the option of home health care assistance for physical therapy evaluation, nursing and [employer] assistance with contact made with agency and intake scheduled for Thursday, January 04, 2018, with patient agreeing. Patient is again encouraged to avoid further benzodiazepine use. He is encouraged to use the crisis line and return to the Emergency Room for worsening symptoms. PHYSICAL EXAMINATION Please see emergency room notes for physical examination. VITAL SIGNS: Vital signs at time of admission include temperature 99.5, pulse of 80, respiratory rate 18, blood pressure 124/72, pulse oximetry 95% on 2L of oxygen. Vital signs at time of discharge include temperature of 98.2, pulse of 90, respiratory rate 18, blood pressure 124/78, pulse oximetry 96% on 2L of nasal cannula. LABORATORY DATA CBC within normal limits with the exception of MPV low at 6.6, neutrophil percent high at 82.4, lymphocyte percent low at 10.2. Chemistry panel including potassium low at 3.3, creatinine high at 1.30, AST initially 41, down to 24, ALT initially 60, decreased to 50, total protein low at 6.0, albumin low at 3.0. Urine screen within normal limits with high amount of urobilinogen upon ER admission. Toxicology including serum alcohol level less than 10. Urine screen negative for opiates, barbiturates, phencyclidines, amphetamines, cocaine, and cannabinoids; positive for benzodiazepines, positive for tricyclics of which he has been prescribed and then discontinued this admission. CONSULTATIONS None. TREATMENT Patient participated in individual and group therapy. His amitriptyline was discontinued. Patient has been started on Topamax targeting anxiety, which will be continued upon discharge. Patient is encouraged to follow up with outpatient individual therapist, Eusebia Corley, who has been contacted prior to discharge with appointment set up for Saturday, January 06, 2018, at 1400. Patient is to continue individual psychiatric medication management through Kalina Kenny as well as medical care through Dr. Bolivar. He is encouraged to comply with oxygen and encouraged to contact his home oxygen company for options for portable oxygen in order to increase compliance. Patient is encouraged to avoid benzodiazepines, take medications only as prescribed. It was reviewed in length the recommendation that he should attend residential rehab for ongoing sedative hypnotic use disorder, although he is declining this option, refusing inpatient treatment. He is agreeable to home health care to assist with physical therapy, nursing, and certified maintenance welder needs. They are scheduled to present to his home on Thursday, January 04, 2018, for initial evaluation and followup care at home. He is agreeable to this assistance. CONDITION OF PATIENT ON DISCHARGE Stable and considered a minimal risk to himself or others. Patient is discharged to home. He is given the crisis line and encouraged use should symptoms worsen. He is encouraged to follow up with his outpatient appointments as scheduled, as well as receive home health care to assist with ADLs, physical therapy and nursing services as appropriate. He is encouraged to take medications only as prescribed and abstain from any illicit substance. DISCHARGE MEDICATIONS 1. Diltiazem 120 mg one p.o. daily. 2. Albuterol sulfate inhaler two puffs as needed every four to six hours for shortness of breath. 3. Lexapro 20 mg one p.o. daily. 4. Folic acid 1 mg p.o. daily. 5. Gabapentin 600 mg p.o. three times per day. 6. Multivitamin p.o. daily. 7. Thiamine 100 mg one p.o. daily. 8. Topamax 50 mg one p.o. twice per day. The risks, benefits, and alternatives to the above discharge plan were discussed. Informed consent was given to proceed with the above discharge plan by this competent patient. CHARLA
== END 2018-01-02 14:00 | disposition home or self-care (01) | DRG 897 ==
LOC: BHS 14:48
PROVIDERS: ADMIT Psychiatry & Neurology Psychiatry; ATTEND Psychiatry & Neurology Psychiatry
DX: F13.230 Sedative, hypnotic or anxiolytic dependence with withdrawal, uncomplicated (principal); I45.81 Long QT syndrome; F41.9 Anxiety disorder, unspecified; E86.0 Dehydration; R09.02 Hypoxemia; F10.21 Alcohol dependence, in remission; W19.XXXA Unspecified fall, initial encounter; Y92.008 Other place in unspecified non-institutional (private) residence as the place of occurrence of the external cause; Z91.19 Patient's noncompliance with other medical treatment and regimen; Z89.022 Acquired absence of left finger(s); Z89.021 Acquired absence of right finger(s)
CPT/HCPCS: 36415; 36416; 82040; 82247; 82310; 82374; 82435; 82565; 82947; 82948; 83735; 84075; 84132; 84155; 84295; 84450; 84460; 84484; 84520; 85025; 86580; 93005; J7030

== ENCOUNTER → 2018-02-25 | Outpatient (CLI) | payer MEDICARE ==
[2016-05-02 08:31] VITALS: BMI 22.7
[~2018-02-25] MED LIST changes: -CLON-298 PO; +CLON-331 PO; +FOLI-68 PO; +THIA100T20 PO
--- NOTE | 2018-02-25 13:40 | RADIOLOGY IMAGING REPORT ---
FACILITY: [facility] PATIENT NAME: Adarsh Tovar : 1950 MR: [id number] V: [id number] EXAM DATE: ORDERING PHYSICIAN: JHONY GRAYSON TECHNOLOGIST: Location: [facility] Patient: Adarsh Tovar : 1950 Visit/Account:[id number] Date of Sevice: 02/25/2018 Exam type: CHEST PA AND LAT History: Productive cough since December Comparison: December 30, 2017 Findings: There is mild hyperexpansion the lung barillas. There is a slight increase in the interstitial marking s of the lungs which could represent interstitial infiltrates. No lobar consolidation identified. T here is no evidence of pleural effusions or pulmonary edema. The cardiac silhouette is normal in siz e. There is moderate ectasia the thoracic aorta. Moderate size hiatal hernia is noted. There is os teopenia of the Visualized bones and mild compression fractures in the midthoracic spine that appear unchanged. IMPRESSION: 1. Subtle interstitial prominence of the lungs which could be related to interstitial infiltrates. Report Dictated By: Lilia Shetty MD at 02/25/2018 1:33 PM Report E-Signed By: Lilia Shetty MD at 02/25/2018 1:36 PM WSN:[id number]
== END ==
LOC: RAD 11:53
PROVIDERS: ATTEND Physician Assistant Medical
DX: R05 Cough (principal)
CPT/HCPCS: 71046